=== PATIENT | female | born 1995 | race Caucasian/White ===

== ENCOUNTER 2022-02-07 16:31 | Outpatient (CLI) | payer OTHER, SELFPAY ==
[2022-02-07 18:15] LABS: HCG Quantitative* 393.84 mIU/mL
== END 2022-02-07 16:32 | disposition home or self-care (01) ==
PROVIDERS: Visit Provider Physician Assistant
DX: Z87.59 Personal history of other complications of pregnancy, childbirth and the puerperium (principal)
CPT/HCPCS: 84702

== ENCOUNTER 2022-02-09 08:05 | Outpatient (CLI) | payer OTHER, SELFPAY | END 2022-02-09 08:06 | disposition home or self-care (01) | PROVIDERS: Visit Provider Physician Assistant | DX: Z34.90 Encounter for supervision of normal pregnancy, unspecified, unspecified trimester (principal) | CPT/HCPCS: 84702 ==

== ENCOUNTER 2022-02-27 15:53 | Outpatient (CLI) | payer OTHER, SELFPAY ==
--- NOTE | 2022-02-27 16:00 | CRLHL7_ITS ---
For Patients: As a result of the Cures Act, medical imaging exams and procedure reports are released immediately into your electronic medical record. You may view this report before your referring provider. If you have questions, please contact your health care provider. INDICATION: First trimester scan, establish dates. COMPARISON: None. TECHNIQUE: Real-time [place]-scale imaging of the pelvis was performed. FINDINGS: Sonographic imaging demonstrates a single living intrauterine gestation. The embryo demonstrates a regular cardiac rate measuring 144 beats per minute. The embryo`s crown-rump length measurement of 1.0 cm corresponds to a gestational age of 7 weeks 1 day with a sonographic due date of 10/15/2022. There is a normal-appearing yolk sac. There are no gross abnormalities noted within the embryo at this early state of development. The gestational sac has a normal appearance. There is no evidence of a perigestational hemorrhage. The amount of fluid within the sac appears appropriate for gestational age. The cervix is closed. The myometrium appears normal. The ovaries are of normal size. Corpus luteal cyst left ovary. There are no suspicious fluid collections noted in the cul-de-sac. IMPRESSION: Normal first trimester OB ultrasound exam. Gestational age calculated at 7 weeks 1 day with a sonographic due date of 10/15/2022. Dictated by Nba Hsu MD @ 03/01/2022 11:32:29 AM (Electronically Signed)
== END 2022-02-27 15:54 | disposition home or self-care (01) ==
LOC: US 15:54
PROVIDERS: Visit Provider Physician Assistant
DX: Z34.91 Encounter for supervision of normal pregnancy, unspecified, first trimester (principal); Z3A.01 Less than 8 weeks gestation of pregnancy
CPT/HCPCS: 76817

== ENCOUNTER 2022-02-27 17:07 | Outpatient (CLI) | payer OTHER, SELFPAY ==
[2022-02-27 18:52] LABS: Hepatitis B Surface Antigen* Negative (Negative)
[2022-02-27 18:58] LABS: HIV 1/2/P24 Combo Screen* Negative (Negative)
[2022-02-27 19:09] LABS: Hepatitis C Virus Antibody* Negative (Negative)
[2022-02-27 19:35] LABS: Chlamydia DNA Amplified* NOT DETECTED (No Detected); GC DNA Amplified* NOT DETECTED (No Detected)
[2022-03-01 23:50] LABS: Varicella-Zoster Virus Ab, IgG 534.6 IV
[2022-03-02 01:54] LABS: Rapid Plasma Reagin (RPR) Non Reactive (Non Reactive)
== END 2022-02-27 17:08 | disposition home or self-care (01) ==
PROVIDERS: Visit Provider Physician Assistant
DX: Z34.91 Encounter for supervision of normal pregnancy, unspecified, first trimester (principal)
CPT/HCPCS: 86592; 86703; 86762; 86787; 86803; 86850; 86900; 86901; 87086; 87340; 87491; 87591

== ENCOUNTER 2022-05-23 12:52 | Outpatient (CLI) | payer OTHER, SELFPAY ==
--- NOTE | 2022-05-23 13:00 | CRLHL7_ITS ---
For Patients: As a result of the Century Cures Act, medical imaging exams and procedure reports are released immediately into your electronic medical record. You may view this report before your referring provider. If you have questions, please contact your health care provider. INDICATION: Evaluate anatomy. COMPARISON: February 27, 2022. TECHNIQUE: Real time [place] scale imaging of the fetus was performed. FINDINGS: Sonographic imaging demonstrates a single living intrauterine gestation. Fetus demonstrates a regular cardiac rate of 135 beats per minute. Fetus has a vertex orientation and longitudinal lie. The placenta lies anteriorly without evidence of placenta previa. Amniotic fluid volume appears normal. Single deepest vertical pocket: 4.1 cm. The cervix is closed and measures 3.3 cm in length. The composite ultrasound gestational age is calculated at 20 weeks 0 days with an estimated sonographic due date of October 10, 2022. The estimated weight is 339 grams which lies at the 74th percentile. The following biometric measurements were obtained: Biparietal diameter: 4.46 cm/19 weeks 3 days 41% Head circumference: 17.23 cm/19 weeks 6 days 46% Abdominal circumference: 15.2 cm/20 weeks 3 days 67% Femur length: 3.3 cm/20 weeks 1 day 60% The HC/AC ratio measures: 1.14 range (1.08-1.25) The FL/AC ratio measures 21.51. On anatomic survey, there is a normal appearance of the cerebral ventricles, cisterna magna and cerebellum. The nose, lips, and facial profile appear normal. The cervical, thoracic and lumbar spine are well visualized and appear normal. There is a normal four-chamber heart view and the left and right ventricular outflow tracts appear normal. diaphragm, stomach, kidneys and bladder appear normal. There is a normal three-vessel cord. The cord insertion site is eccentric. The four extremities appear normal. Appropriate growth and maturation when compared with February 27, 2022. IMPRESSION: Normal OB ultrasound exam with concordance of clinical and sonographic dating. No intrinsic abnormalities noted on anatomic survey. There is however an eccentric cord insertion site. Dictated by Davion Acuña MD @ 05/24/2022 8:32:01 AM (Electronically Signed)
== END 2022-05-23 12:53 | disposition home or self-care (01) ==
LOC: US 12:53
PROVIDERS: Visit Provider Advanced Practice Midwife
DX: Z34.92 Encounter for supervision of normal pregnancy, unspecified, second trimester (principal); Z3A.19 19 weeks gestation of pregnancy
CPT/HCPCS: 76805

== ENCOUNTER 2022-07-20 13:34 | Outpatient (CLI) | payer OTHER, SELFPAY | END 2022-07-20 13:35 | disposition home or self-care (01) | LOC: NFLDREF 07-24 08:36 | PROVIDERS: Visit Provider Advanced Practice Midwife | DX: Z34.82 Encounter for supervision of other normal pregnancy, second trimester (principal) | CPT/HCPCS: 86592 ==

== ENCOUNTER 2022-07-23 07:53 | Outpatient (CLI) | payer OTHER, SELFPAY | END 2022-07-23 07:54 | disposition home or self-care (01) | LOC: NFLDREF 07-24 11:28 | PROVIDERS: Visit Provider Advanced Practice Midwife | DX: Z34.93 Encounter for supervision of normal pregnancy, unspecified, third trimester (principal); Z3A.28 28 weeks gestation of pregnancy | CPT/HCPCS: 82951; 82952 ==

== ENCOUNTER 2022-08-10 10:49 | Outpatient (CLI) | payer OTHER, SELFPAY | END 2022-08-10 10:50 | disposition home or self-care (01) | LOC: AMB 08-23 13:38 | PROVIDERS: Visit Provider Family Medicine | DX: K81.0 Acute cholecystitis (principal); R09.02 Hypoxemia; R10.9 Unspecified abdominal pain | CPT/HCPCS: A0425; A0426; A0428 ==

== ENCOUNTER 2022-09-13 10:47 | Outpatient (CLI) | payer OTHER, SELFPAY ==
[2022-09-14 15:41] LABS: Strep B DNA Probe NEGATIVE (Negative)
[2022-09-14 15:43] LABS: Strep B Pen/Amox Allergy No
== END 2022-09-13 10:48 | disposition home or self-care (01) ==
PROVIDERS: Visit Provider Physician Assistant
DX: Z34.93 Encounter for supervision of normal pregnancy, unspecified, third trimester (principal); Z3A.35 35 weeks gestation of pregnancy
CPT/HCPCS: 87081; 87653

== ENCOUNTER 2022-09-28 07:10 | Outpatient (CLI) | payer OTHER, SELFPAY ==
--- NOTE | 2022-09-28 07:15 | CRLHL7_ITS ---
For Patients: As a result of the Cures Act, medical imaging exams and procedure reports are released immediately into your electronic medical record. You may view this report before your referring provider. If you have questions, please contact your health care provider. INDICATION: measuring large for dates COMPARISON: 05/23/2022 TECHNIQUE: Real time [place] scale imaging of the fetus was performed. FINDINGS: Sonographic imaging demonstrates a single living intrauterine gestation. Fetus demonstrates a regular cardiac rate of 141 beats per minute. Fetus has a vertex position. The placenta lies anteriorly. Amniotic fluid volume appears increased and there is a single deepest vertical pocket: 10.2 cm. ILAN 29.1 cm. The estimated weight is 3717gm which lies at the 88th %. On the prior OB ultrasound exam dated 05/23/2022 the estimated weight was at the 74th%. BPD 36th percentile. HC 59th percentile. AC greater than 97th percentile. FL 37th percentile. The HC/AC ratio measures 0.93 range (0.88-1.06). IMPRESSION: Sonographic gestational age 38 weeks 3 days and sonographic due date 10/09/2022. Good correlation with dates. Estimated weight 88th percentile. Abdominal circumference greater than 97th percentile. Polyhydramnios. ILAN 29.1 cm. Dictated by Nba Hsu MD @ 09/28/2022 8:26:54 AM (Electronically Signed)
== END 2022-09-28 07:11 | disposition home or self-care (01) ==
LOC: US 07:11
PROVIDERS: Visit Provider Advanced Practice Midwife
DX: O40.3XX0 Polyhydramnios, third trimester, not applicable or unspecified (principal)
CPT/HCPCS: 76816

== ENCOUNTER 2022-10-02 15:55 | Outpatient (CLI) | payer OTHER, SELFPAY ==
--- NOTE | 2022-10-02 14:00 | CRLHL7_ITS ---
For Patients: As a result of the Century Cures Act, medical imaging exams and procedure reports are released immediately into your electronic medical record. You may view this report before your referring provider. If you have questions, please contact your health care provider. INDICATION: Polyhydramnios, third trimester COMPARISON: 09/28/2022 TECHNIQUE: Real time [place] scale imaging of the fetus was performed. Without non-stress testing. FINDINGS: Sonographic imaging demonstrates a single living intrauterine gestation. Fetus demonstrates a regular cardiac rate of 146 beats per minute. Fetus has a vertex position. The amniotic fluid volume appears increased and there is a single deepest pocket measurement of 10.2 cm. ILAN 28.9 cm. The fetus was active and demonstrated normal breathing movements. There was normal flexion and extension of the trunk and extremities. IMPRESSION: Normal biophysical profile score of 8 out of 8. Polyhydramnios. Dictated by Nba Hsu MD @ 10/03/2022 8:42:38 AM (Electronically Signed)
== END 2022-10-02 15:56 | disposition home or self-care (01) ==
LOC: US 15:56
PROVIDERS: Visit Provider Advanced Practice Midwife
DX: O40.3XX0 Polyhydramnios, third trimester, not applicable or unspecified (principal); Z3A.31 31 weeks gestation of pregnancy
CPT/HCPCS: 76819

== ENCOUNTER 2022-10-08 09:28 | Outpatient (CLI) | payer OTHER, SELFPAY ==
--- NOTE | 2022-10-08 09:45 | CRLHL7_ITS ---
For Patients: As a result of the Cures Act, medical imaging exams and procedure reports are released immediately into your electronic medical record. You may view this report before your referring provider. If you have questions, please contact your health care provider. INDICATION: Polyhydramnios. Third trimester. TECHNIQUE: Real-time [place] scale imaging of the fetus was performed. Without non stress testing. Comparison October 02, 2022. FINDINGS: Single living intrauterine in vertex presentation. Anterior placenta. heart rate 136 beats per minute. Biophysical profile score 8/8 with 2 points given each for breathing, movement, tone, and amniotic fluid. Single deepest pocket measurement 8 cm, previously 10.2 cm. Amniotic fluid volume index 22.7 cm, previously 28.9 cm. IMPRESSION: Single living intrauterine in vertex presentation. Amniotic fluid volume index and single deepest pocket measurements are at the upper limit of normal, improved compared to the prior study. Dictated by Davion Acuña MD @ 10/08/2022 10:31:34 AM (Electronically Signed)
== END 2022-10-08 09:29 | disposition home or self-care (01) ==
LOC: US 09:29
PROVIDERS: Visit Provider Advanced Practice Midwife
DX: O40.3XX0 Polyhydramnios, third trimester, not applicable or unspecified (principal); Z3A.31 31 weeks gestation of pregnancy
CPT/HCPCS: 76819

== ENCOUNTER 2022-10-10 07:09 | Inpatient (IN) | payer OTHER, SELFPAY ==
[2022-10-10] VITALS (32 sets, daily range): BP systolic 92–121; BP diastolic 52–83; PULSE 58–105; RESP 16–18; TEMP 36.5–37; O2SAT 94–100; BMI 36.9
--- NOTE | 2022-10-10 08:29 | W.PM.LDBA ---
Subjective History of Present Illness Narrative: Patient is being admitted to Labor and Delivery for IOL for polyhydramnios. Her ILAN was 29.1 and 28.9 on two occasions but was down to 22.7 on last check. Her IOL was already scheduled at that time so she was given the option for continuing with the plan for an IOL or waiting for spontaneous labor with follow up BPPs. She choose to continue with the plan for an IOL. She is a 26 year old at weeks gestation. Her full history and physical was dictated by Amanda Purvis CNM on 09/21/22. Please see this for details. 1. Obesity, BMI 35.8 Hemoglobin A1c: 5.3 Aspirin 81 mg weeks 12 through 36 Early GTT @ 20w: 128 2. History of recurrent loss Blighted ovum 03/14, ectopic August 2021, treated with methotrexate 3. Failed 1hr GTT. 3hr GTT vs. 1-2 wks of testing-unsure, depends on if she can get time off work. Passed 3 hour (03/28 numbers abnormal) 4. Gallstones 08/06 Consult to general surgery placed Reviewed plan of care with Dr. Babb 08/06 5. Measuring large for dates 09/27, EFW 88%, AC >97% 6. Polyhydramnios, ILAN 29.1, SDP 10.2 BPP weekly until delivery. Ordered Delivery at 39-40 weeks 39.3wks ILAN 22.7, SDP 8cm. Choose to continue with IOL on 10/10/22. OB - Problem Based A/P Additional Plan (1) Polyhydramnios affecting in third trimester: Status: Acute (2) Obesity with body mass index (BMI) of 35.0 to 39.9 without comorbidity: Status: Chronic (3) Encounter for induction of labor: Status: Acute Plan ASSESSMENT:? at 39.5 weeks gestation? GBS negative? ?complicaed by polyhydramnios that was found to be then resolved. IOL? ?? PLAN:? 1. Reviewed risks and benefits of IOL with Pitocin vs Cytotec. Pt prefers Cytotec. Pitocin to follow if needed.? 2. Candidate for analgesia of choice. Planning epidural.? 3. Anticipate VD? 4. IV placement for anticipated epidural. She desires placement. 5. Continuous monitoring per Cytotec policy. Delivery/Labor/Induction Plan Plan: induction Induction method: per misoprostol protocol OB Result Labs Blood Type: A (+) positive GBS Status: negative OB Exam Physical Exam Vital signs: Pulse BP Pulse Ox 103 H 112/68 96 10/10/22 07:24 10/10/22 07:24 10/10/22 07:25 Narrative: Psychiatric:? Alert and oriented x3? HEENT:? Normocephalic, atraumatic? Neck:? Supple without adenopathy or thyromegaly? Lungs:? Clear to auscultation bilaterally? Heart:? Regular rate and rhythm, no murmur, rub or gallop? Abdomen:? Soft, nontender, and gravid? Extremities:? No edema or erythema? Detailed Labor and Delivery Exam Patient Gravid: Yes Dilation (cm): 1 (1.5) Effacement (%): 80 Cervix position: posterior Consistency: medium Contraction Frequency: 3-4 Contraction intensity: Mild Fetus (Single) Station: -2 (ballotable ) Amniotic Membrane Status: intact Heart Rate Baseline: 135 Monitor Accelerations: Present Monitor Decelerations: None Conveyor Tender Variability: Moderate (6-25)
[2022-10-10] MEDS: miSOPROStoL 25 MCG/0.25 TABLET VAGINAL ×4 (08:42→17:44)
[2022-10-10] MEDS: LACTATED RINGERS 1000 ML 1,000 ML 125 ML IV ×3 (14:39→23:08)
[2022-10-10] MEDS: ROPIVACAINE 0.2% 100 ml 100 ML 12 MG EPIDURAL (21:08)
--- NOTE | 2022-10-10 21:18 | P.ANBPRC_ITS ---
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 What is your current living situation?: I presently have a place to live Problems where you live: no known problems In the past 12 months, utilities in danger of being shut off: no In the past 12 mos, have been you worried that your food would run out before you had money to buy more?: never true In the past 12 mos, the food you bought just didn't last and you didn't have money to buy more?: never true Highest level of school completed/degree received: Bachelor's degree Smoking Status: Never smoker Do you use any of these nicotine containing products: None Second hand tobacco smoke exposure: No How often do you have a drink containing alcohol: never AUDIT-C Alcohol total score: 0 Non-prescribed substance use: denies use Caffeine: No How often does anyone, including family, friends and others, physically hurt you : never How often does anyone, including family, friends and others, insult or talk down to you: never How often does anyone, including family, friends and others, threaten you with harm: never How often does anyone, including family, friends and others, scream or curse at you: never Little interest or pleasure in doing things: not at all Feeling down, depressed, or hopeless: not at all service: No Meds Home Medications and Allergies Home Medications Medication Instructions Recorded Confirmed Type docosahexaenoic acid 200 mg 1 mg PO DAILY 02/27/22 10/10/22 History capsule ( DHA) aspirin 81 mg capsule 81 mg PO DAILY 08/09/22 10/10/22 History Allergies Allergy/AdvReac Type Severity Reaction Status Date / Time No Known Drug Allergies Allergy Verified 10/10/22 07:56 Results Vital Signs Vital Signs: Last Vital Signs Temp 98.4 F 10/10/22 20:42 Pulse 88 10/10/22 21:15 Resp 16 10/10/22 20:42 BP 110/71 10/10/22 21:15 Pulse Ox 100 10/10/22 21:08 Weight: 91.626 kg Height: 157.48 cm Anesthesia Procedures Epidural Insertion Patient Location: OB Start Time: : Stop Time: : Start Date: 10/10/22 Stop Date: 10/10/22 Reason for Block: procedure for pain Patient Position: sitting Performed By: Joseph Monahan Preanesthetic Checklist: IV checked, risks and benefits discussed, surgical consent, monitors and equipment checked, pre-op evaluation, timeout performed and anesthesia consent Prep: chlorhexidine gluconate Monitoring: blood pressure monitoring, continuous pulse oximetry and heart rate Approach: midline Vertebral Space: lumbar (1-5) Epidural Technique: JOSE ALFREDO saline Needle Type: Tuohy needle Injection Technique: continuous catheter Needle gauge: 17 Needle Length (cm): 10 cm Needle Insertion Depth (cm): 7 Catheter Gauge: 19 Catheter Type: multi-orifice Catheter at skin depth (cm): 12 Test Dose Result: negative and lidocaine 1.5% with epinephrine 1 to 200,000
--- NOTE | 2022-10-10 22:12 | PM.OBPNL ---
Subjective Date Seen: 10/10/22 Narrative: Silvia has received multiple doses of Cytotec and is murphy frequently. She was able to feel these contractions but they felt mild and some were uncomfortable and some only felt as tightening. She changed position frequently and did the labor warm up. She felt a gush of fluid at 2014 and proceeded to leak copious amounts of clear fluid. Soon after she started feeling significantly more uncomfortable with contractions and requested an epidural. She is now comfortable with her epidural. Encouraged her to rest if able. Objective Vital Signs: Last Vital Signs Temp 98.6 F 10/10/22 21:56 Pulse 67 10/10/22 22:07 Resp 18 10/10/22 21:56 BP 101/57 L 10/10/22 22:07 Pulse Ox 100 10/10/22 21:08 Pelvic Exam Dilation (cm): 4-5 Effacement (%): 80 Station: -2 Contractions Monitor mode: External Contraction intensity: Mild Assessment Station: -2 (ballotable ) Heart Rate Baseline: 135 Monitor Accelerations: Present Monitor Decelerations: None Plan Plan: Hold Cytotec at this time. Can reevaluate as patient condition changes. Epidural in place. Expectant management at this time. Anticipate .
[2022-10-10] MEDS: PHENYLEPHRINE 100 MCG/ML SYRINGE IVP ×3 (22:19→23:08)
[2022-10-10 23:43] LABS: Basophils Percent Auto 0.1 % (0.0-3.0); Eosinophils Percent Auto 0.4 % (0.0-7.0); Hematocrit 37.9 % (33.0-51.0); Hemoglobin* 13.3 gm/dL (12.0-16.0); Immature Granulocytes Pct Auto 0.4 %; Lymphocytes Percent Auto 13.1 % (20-44); Mean Corpuscular HGB Conc 35 gm/dL (32-36); Mean Corpuscular Hemoglobin 32 pg (26-34); Mean Corpuscular Volume 90 fL (80-100); Monocytes Percent Auto 5.4 % (0.0-11.0); Neutrophils Percent Auto 80.6 % (42.0-72.0); Platelet Count* 257 K/uL (140-440); Red Blood Count 4.22 m/uL (4.00-5.20); White Blood Count* 13.92 K/uL (4.50-11.00)
[2022-10-10 23:48] LABS: Slide Review Reflex No
[2022-10-11] VITALS (34 sets, daily range): BP systolic 92–141; BP diastolic 52–75; PULSE 54–126; RESP 16–18; TEMP 36.6–37.3; O2SAT 96–100
[2022-10-11] MEDS: PHENYLEPHRINE 100 MCG/ML SYRINGE IVP (00:22)
[2022-10-11] MEDS: ONDANSETRON 2 MG/ML inj 4 MG IV (03:58)
[2022-10-11] MEDS: OXYTOCIN 30 unit/500 ML in NS 30 UNIT/500 ML BAG 325 UNIT IVPB (05:00)
--- NOTE | 2022-10-11 05:43 | W.PM.OBVAGDE ---
OB Procedure Vag Delivery Mother Details Mother Details: The patient is a 26 year-old, 3, Para 0, admitted on 10/10/22 at Days gestation for IOL for polyhydraminious.? Cervical exam on admission was 1.5 cm/60 % effaced/-3 station with membranes intact in vertex presentation.? Contractions were every 2-4 min but she was not feeling them.? heart rate demonstrated baseline 135 bpm with moderate variability, + accelerations, - decelerations; a category 1 tracing.? SROM occurred at 2014 with clear fluid.? : 1 Para: 1 Weeks Gestation: 39.6 Admission Date: 10/10/22 Additional Details Amniotic Membrane Status: SROM Amniotic Membrane Rupture Date: 10/10/22 Amniotic Membrane Rupture Time: 20:15 Amniotic Membrane Fluid Description: Clear Analgesia/Anesthesia Type: Epidural Waterbirth: No Pitcoin: Yes ( only) Intrapartal Events: Labor Induction Induction Method: per misoprostol protocol Labor Onset: 20:45 Complete: 02:30 Pushin:40 Heart: heart tones during second stage were category 2. Baseline 145, + accels, variable decels, moderate variability. Delivery Details Delivery Date: 10/11/22 Delivery Time: 04:59 Route of delivery: Infant Gender: Female Viability: Alive; Heart Rate Present Position at Delivery: OA Delivery Details: At 0459 a viable female delivered in vertex OA presentation over intact perineum via spontaneous vaginal delivery.? was placed on maternal abdomen.? Cord was clamped and cut after a >5 minute delay.? Nose and mouth were bulb suctioned.? weight pending.? 7 at 1 minute and 9 at 5 minutes.? Shoulder dystocia: no.? Nuchal cord: x1, summersaulted at the perineum.? 1 Minute Interval Total Score: 7 5 Minute Interval Total Score: 9 Additional Details Shoulder Dystocia: No Placenta Delivery Time: 05:08 Placental Delivery Description: Spontaneous Delivery repair: Vicryl Procedure Done: Global Blood Loss: 950 (likely a significant amount of amniotic fluid in the drape with delivery but unable to distinguish from blood.) Laceration: Perineal - 2nd Degree Episiotomy Description: None Blood Loss Measurement Type: QBL Sponge/Need Count Correct: Yes Cord Vessel Description: 3 Vessels and Nuchal Cord Event Summary Status: Mother and infant were stable after delivery. Disposition: floor
[2022-10-11] MEDS: ACETAMINOPHEN 500 MG TABLET 1000 MG PO ×2 (10:04→15:33)
[2022-10-11] MEDS: DOCUSATE SODIUM 100 MG CAPSULE PO (11:12)
[2022-10-11] MEDS: IBUPROFEN 600 MG TABLET PO ×2 (12:46→20:16)
[2022-10-12] VITALS: BP 101/74; PULSE 63; RESP 18; TEMP 36.7; O2SAT 98
[2022-10-12 06:59] LABS: Hemoglobin* 11.8 gm/dL (12.0-16.0)
[2022-10-12 07:32] VITALS: BP 117/77; PULSE 90; RESP 18; TEMP 36.8; O2SAT 97
[2022-10-12] MEDS: IBUPROFEN 600 MG TABLET PO (07:40)
[2022-10-12] MEDS: DOCUSATE SODIUM 100 MG CAPSULE PO (07:40)
--- NOTE | 2022-10-12 07:52 | P.DS_ITS ---
DS: Providers Provider Date Seen: 10/12/22 Date of admission: 10/10/22 07:09 Primary care physician: Not a Local Provider Admitting Clinician: Aminata Purvis CNM Attending Physician on discharge: Annemarie Chavez CNM DS: Diagnosis Discharge Diagnosis (1) care and examination immediately after delivery: Status: Acute (2) Lactating mother: Status: Acute (3) Normal vaginal delivery: Status: Acute Exam Narrative: Exam Narrative: GENERAL APPEARANCE:? normal affect, alert, no distress MOOD:? appropriate CHEST:? clear to auscultation HEART:? regular rate and rhythm ABDOMEN:? soft, non-tender the uterine fundus is at Umbilicus, Midline and is appropriate for the stage of recovery. PERINEUM:? mild edema of the perineum, there is a Perineal Laceration,?2nd degree, that is healing well. EXTREMITIES:? normal and no edema Const: Vital Signs, click to edit/add: Vital Signs - 24 hr 10/11/22 08:39 10/11/22 09:12 10/11/22 11:39 Temperature 98.2 F 97.9 F Pulse Rate 78 Pulse Rate [Blood Pressure Cuff] 78 70 Respiratory Rate 17 17 Blood Pressure 112/61 Blood Pressure [Le ft Arm] 112/61 115/72 Pulse Oximetry 96 Oxygen Delivery Me thod Room Air Room Air 10/11/22 15:58 10/11/22 20:20 10/12/22 00:00 Temperature 98.2 F 97.8 F 98.1 F Pulse Rate Pulse Rate [Blood Pressure Cuff] 75 65 63 Respiratory Rate 16 18 18 Blood Pressure Blood Pressure [Le ft Arm] 107/63 99/67 101/74 Pulse Oximetry 97 97 98 Oxygen Delivery Me thod Room Air Room Air Room Air 10/12/22 07:32 Temperature 98.3 F Pulse Rate Pulse Rate [Blood Pressure Cuff] 90 Respiratory Rate 18 Blood Pressure Blood Pressure [Le ft Arm] 117/77 Pulse Oximetry 97 Oxygen Delivery Me thod Room Air Documenting provider has reviewed patient's vital signs: yes OB - DS: Summary Hospital Course Hospital Course: January Vega is a 26 y.o. G 3 P 1021 who was admitted to [facility] for induction of labor for polyhydramnios. ?She had an uncomplicated NVD. The patient feels well. ?The pain is well controlled with current medications. ?She has no new complaints. ?She is breast feeding and reports things are going ok. Her milk has not come in so they have supplemented with donor breast milk. She is planning to see today. She does attempt to bring baby to breast but doesn't want to make things more stressful if it doesn't work. the patient has done well.? Vitals have been stable.? She has remained afebrile.? Has a good appetite, is tolerating a general diet. ?She is voiding without difficulty.? She is passing gas and has not had a bowel movement.? She is ambulating and denies any dizziness.? Has Small amount of rubra lochia. She is planning oral progesterone only pills for control. Problems: None plan: Discharge home with baby. Follow up in 2 weeks and 6 weeks. , may see if needed Hgb 11.8 Peripartum Data Infant delivery method: Vaginal Laceration description: Perineal - 2nd Degree complications: none [place] Gender: Female Discharge Plan: Home Status at Discharge Functional status at discharge: independent ambulation Overall status at discharge: patient is progressing back to baseline Time Spent with Patient Time attestation: Total time spent providing and/or coordinating discharge services: Discharge Plan Discharge Disposition: Home, Self-Care Date of Admission: 10/10/22 07:09 Primary Care Provider: Provider,Not a Local Condition: Stable Anticipated Discharge Date/Time: 10/12/22 12:00 Discharge Medications: New docusate sodium 100 mg Capsule 100 mg PO DAILY Qty: 90 0RF ibuprofen 600 mg Tablet 600 mg PO Q6H PRNQty: 60 0RF acetaminophen 500 mg Tablet 1,000 mg PO Q6H PRNQty: 0 0RF Continued DHA 200 mg capsule 1 mg PO DAILY Discontinued aspirin 81 mg capsule 81 mg PO DAILY Discharge Orders: Discharge Order (Routine); Ordered 10/12/22 Ordered By: Annemarie Chavez Patient Education: OB Over the Counter Medication Information, OB Vaginal/Breast Feeding Additional Instructions: Discharge instructions were reviewed with the patient including signs and symptoms of infection and home going medications Nothing vaginally for 6 weeks: no tampons or intercourse Off Work or School for 6 weeks 2-week visit: discuss infant feeding concerns, review control options and screen for anxiety/depression. 6-week visit for an annual exam. consultation services are available to all mothers and babies for the first year after delivery.? To make an appointment, please call [phone]. Activity Level: Activity as Tolerated Discharge Diet: Regular Follow Up Appointments: [facility] [Provider Group] Forms: [employer]. Info Instructions
== END 2022-10-12 11:05 | disposition home or self-care (01) | DRG 807 ==
PROVIDERS: Admitting Provider Advanced Practice Midwife; Visit Provider Advanced Practice Midwife
DX: O40.3XX0 Polyhydramnios, third trimester, not applicable or unspecified (principal); Z37.0 Single live birth; O99.214 Obesity complicating childbirth; O70.1 Second degree perineal laceration during delivery; Z3A.39 39 weeks gestation of pregnancy
CPT/HCPCS: 1967; 36415; 59200; 85018; 85025; 86850; 86900; 86901; A9270; J2371; J2405; J2795; J7120; S0020

== ENCOUNTER 2023-07-08 18:28 | Outpatient (CLI) | payer OTHER, SELFPAY ==
--- OUTSIDE RECORDS SUMMARY | 2023-07-08 18:31 | XMS_ITS | Clinical Summary ---
Author Name Unknown Organization [facility] Address [place], [place] [address] Care Team Providers Care Print Cutter Name Role Phone Unavailable Primary Care Provider Unavailabl e Allergies No known active allergies Medications Medication Sig Dispensed Refills Start Date End Date Status PNV #[id number] acid-dha 35 mg iron-5 mg iron-1 mg cap Take 1 Capsule by mouth once daily. Active aspirin (ECOTRIN) 81 mg enteric coated tablet Take 81 mg by mouth once daily. Active pyridoxine, vitamin B6, (Vitamin B-6) 25 mg tabletIndications:exce ssive vomiting in ,nausea gravidarum Take 25 mg by mouth at bedtime if needed. Active doxylamine (UNISOM) 25 mg tabletIndications:naus ea gravidarum Take 25 mg by mouth at bedtime if needed for Sleep. Active Active Problems Problem Noted Date Diagnosed Date Hypoxia 08/12/2022 Cholelithiasis 08/12/2022 Shortness of breath 08/12/2022 31 weeks gestation of 08/12/2022 Acute pulmonary edema 08/12/2022 Choledocholithiasis Resolved Problems Problem Noted Date Diagnosed Date Resolved Date Acute pulmonary edema 08/12/20222022 Social History Tobacco Use Types Packs/Day Years Used Date Smoking Tobacco: Never Smokeless Tobacco: Never Tobacco Cessation:Counseling Given: No Alcohol Use Standard Drinks/Week Comments Not Currently 0 (1 standard drink = 0.6 oz pure alcohol) prior to 1 drink a week tops Social Connections Answer Date Recorded Frequency of Communication with Friends and Fami ly Not on file 08/10/2022 Sex and Gender Information Value Date Recorded Sex Assigned at Not on file Gender Identity Not on file Sexual Orientation Not on file Obstetrics History Para Term AB IAB SAB Ectopic Multiple Livin g Live Births 3 2 Date Outcome GA Total Labor Labor/2nd/3rd Weight Sex Delivery Anes PTL Verenice A1 A5 Name Cl in 03/13 21 AB 09/11 22 AB ECTOPIC Last Filed Vital Signs Vital Sign Reading Time Taken Comments Blood Pressure 95/53 08/14/2022 8:00 AM CDT Pulse 94 08/14/2022 8:00 AM CDT Temperature 36.9 ??C (98.5 ??F) 08/14/2022 8:00 AM CD T Respiratory Rate 18 08/14/2022 8:00 AM CDT Oxygen Saturation 96% 08/14/2022 8:00 AM CDT Inhaled Oxygen Concentration - - Weight 87.2 kg (192 lb 3.9 oz) 08/11/2022 10:00 PM CDT Height 157 cm (5' 1.81) 08/10/2022 12:00 PM CDT Body Mass Index 35.38 08/10/2022 12:00 PM CDT Plan of Treatment Not on file Advance Directives * Full Code (Latest Code Status on File) Date Activated Date Inactivated Comments 08/10/2022 12:38 PM 08/14/2022 2:18 PM Question Answer Comments Code Status Discussion: Reviewed Preferences * Full Code Date Activated Date Inactivated Comments 08/10/2022 12:04 PM 08/10/2022 12:38 PM Question Answer Comments Code Status Discussion: Unable to Assess Preferences, Provider to review later
== END 2023-07-08 18:29 | disposition home or self-care (01) ==
PROVIDERS: Visit Provider Nurse Practitioner Family
DX: R10.11 Right upper quadrant pain (principal)
CPT/HCPCS: 80053; 82150; 83690

== ENCOUNTER 2023-08-01 15:51 | Outpatient (CLI) | payer OTHER, SELFPAY ==
--- OUTSIDE RECORDS SUMMARY | 2023-08-01 16:10 | XMS_ITS | Clinical Summary ---
Author Name Unknown Organization [facility] Address [place], [place] [address] Care Team Providers Care Chain Saw Operator Name Role Phone Unavailable Primary Care Provider Unavailabl e Allergies No known active allergies Medications Medication Sig Dispensed Refills Start Date End Date Status PNV #[id number] acid-dha 35 mg iron-5 mg iron-1 mg [...]
== END 2023-08-01 15:52 | disposition home or self-care (01) ==
PROVIDERS: PCP Nurse Practitioner Family; Visit Provider Nurse Practitioner Family
DX: R10.11 Right upper quadrant pain (principal)
CPT/HCPCS: 80053; 82150; 83690; 85025

== ENCOUNTER 2023-09-05 06:46 | Day surgery (SDC) | payer OTHER, SELFPAY ==
[2023-09-05] VITALS (11 sets, daily range): BP systolic 98–120; BP diastolic 59–79; PULSE 64–95; RESP 14–16; TEMP 36.1–36.5; O2SAT 96–100; BMI 33.3
--- OUTSIDE RECORDS SUMMARY | 2023-09-05 06:48 | XMS_ITS | Clinical Summary ---
Author Organization [facility] Address [place], [place] [address] Care Team Providers Care Cooler Tender Name Role Phone Unavailable Primary Care Provider Unavailabl e Allergies No known active allergies Medications Medication Sig Dispensed Refills Start Date End Date Status PNV #27-pzlm-heach acid-dha 35 mg iron-5 mg iron-1 mg [...] Outcome GA Total Labor Labor/2nd/3rd Weight Sex Type Anes PTL Verenice A1 A5 Name Clin 1 AB 2 AB ECTOPIC Last Filed Vital Signs Vital [...]
[2023-09-05 07:18] LABS: Ur HCG Qualitative* Negative (Negative)
[2023-09-05] MEDS: SODIUM CHLORIDE 0.9 % (FLUSH) 10 ML SYRINGE IVF (07:30)
[2023-09-05] MEDS: LACTATED RINGERS 1000 ML 1,000 ML 100 ML IV ×2 (07:35→09:55)
--- NOTE | 2023-09-05 08:01 | W.PM.H&PU ---
History & Physical Update History & Physical Update H&P Reviewed and patient assessed: No changes noted H&P Updates: pre-op labs reviewed which were normal.
--- NOTE | 2023-09-05 08:04 | PM.GSPRC ---
Operative Note Date of procedure: 09/05/23 Pre-op diagnosis: 1. Biliary colic 2. History of choledocholithiasis during status post ERCP Post-op diagnosis: 1. Chronic cholecystitis 2. History of choledocholithiasis during status post ERCP Type of Procedure: The patient is a 27-year-old female who, approximately 1 year ago, presented to the emergency department with right upper quadrant pain during her 31st week of . Workup revealed cholecystitis. She was admitted to the hospital on IV antibiotics and antiemetics. She was found to have a bilirubin increased to 3.7. She was transferred to an outside hospital for an ERCP. She was found to have a large amount of stones and sludge in the lower 3rd of her bile duct. After her ERCP she had no further issues and did not follow up for cholecystectomy. She went on to deliver her baby without incident and had no further episodes until the last couple of months. She had a few episodes of upper abdominal pain with nausea and vomiting. She has been eating a low diet since which has helped control her symptoms. She then presented to clinic to discuss cholecystectomy. After discussion, I did recommend cholecystectomy given her symptoms, history of choledocholithiasis and desire to have further pregnancies in the near future. She agreed to proceed. Procedure Description: After discussing the risks and benefits of the procedure, the patient signed informed consent.? The operative site was marked and the patient was brought to the operating room and placed on the operating table in supine position.? Care was taken to pad the patient's pressure points.?? The patient was then intubated by anesthesia.?? The operative site was then prepped and draped in the usual sterile fashion.? A time-out was then performed. Entrance to the abdomen was attempted via a 5 mm Visiport in the left upper quadrant. The layers the abdomen were visualized as it passed through, however when insufflation was applied, the port was not in the abdominal cavity. Visiport technique was attempted again, however again it appeared as though the port was in the preperitoneal space though a fair amount of fatty tissue was visualized here. Because of this I elected to enter the abdomen with a Kaye technique. An incision was made below the umbilicus. Dissection was taken down to the fascia using cautery. The fascia was grasped between 2 Kiana clamps. This was then incised. The peritoneum was entered. The abdomen was then insufflated. As suspected, the left upper quadrant port had not gone all the way through the abdominal wall. This was then placed under direct vision. The patient was then placed in reverse Trendelenburg with the right-side up. 5 mm working ports were then placed along the right costal margin, under direct vision. The gallbladder initially was not visible under the liver, but once the liver was lifted gently, the gallbladder was noted. It was contracted. There were omental adhesions noted. The gallbladder was grasped and lifted cephad. The fundus of the gallbladder was firm and contained a large stone. This portion of the gallbladder was bulbous, however then it appeared to taper more gradually down towards a dilated cystic duct. I began my dissection just under the bulbous portion of the gallbladder. I was able to incise the serosa of the gallbladder and then, using a combination of hook cautery, blunt dissection and the suction middle school guidance counselor, I was able to dissect completely behind the gallbladder on the cystic plate. I took this dissection down towards what appeared to be the cystic duct. I had at this point dissected the majority of the gallbladder of the cystic plate except for a small area at the fundus. I then began dissecting out what appeared to be cystic artery sitting on top of a dilated cystic duct. The adhesions here were dense, however I was able to carefully dissect out the cystic duct which actually was much smaller than it initially appeared once the adhesions were dissected free. I was also able to dissect the cystic artery. There was a branch diving posteriorly into the liver. I kept my dissection distal to this, dissecting it where it clearly enter the gallbladder and did not have any other branches toward the liver. Once this was done 2 clips were placed on the artery proximally and 1 clip distally. Similarly 1 clip was placed on the cystic duct proximally and 2 clips distally. Both structures were divided. The gallbladder was then completely removed from the liver. This was removed from the abdomen using an Endo-Catch bag. The wound bed was examined. A few small stones had spilled out of the gallbladder during the procedure. However these were removed at the time. Irrigation was used in the right upper quadrant to ensure that any spilled bile or gallstones were removed. Hemostasis appeared excellent. Ports were then removed and the abdomen was desufflated. The umbilical port site fascia was closed with 0 Vicryl suture. Local anesthetic was injected around the port sites. The skin was closed with absorbable subcuticular suture. Sterile dressings were applied. Instrument sponge and needle counts were correct at the end of the case. The patient was then woken and transferred to the PACU in stable condition. ? The patient tolerated the procedure well. Findings: Contracted gallbladder with gallstones, indicating chronic cholecystitis. Anesthesia: GETA Surgeon: Dione Winslow MD Estimated blood loss (mL): 5 Specimen: Gallbladder Condition: stable Disposition: PACU
[2023-09-05] MEDS: CEFAZOLIN 2 GM INJ IVP (08:21)
[2023-09-05] MEDS: BUPIVACAINE 0.25% 30 ML INJECTION (08:28)
--- NOTE | 2023-09-05 09:51 | W.ANESCHARGE ---
Anesthesia Charges Start Date/Time Anesthesia Start Date: 09/05/23 Anesthesia Start Time: 07:59 Stop Date/Time Anesthesia Stop Date: 09/05/23 Anesthesia Stop Time: 10:16
--- NOTE | 2023-09-05 10:24 | W.ANESCHARGE ---
Anesthesia Charges Start Date/Time Anesthesia Start Date: 09/05/23 Anesthesia Start Time: 07:59 Stop Date/Time Anesthesia Stop Date: 09/05/23 Anesthesia Stop Time: 10:16
--- NOTE | 2023-09-05 10:37 | SUR.PHASEI ---
Patient restless on entry to Phase I. Patient rolling in bed. steri strips at 3 incision sites no longer present. Charge Nurse Dian notified. Mable LEON in room to reapply steri strips at all incision sites. Patient tolerated well.
== END 2023-09-05 11:55 | disposition home or self-care (01) ==
LOC: OR 06:46
PROVIDERS: Anesthesiology; PCP Nurse Practitioner Family; Visit Provider Surgery
PROC: 0FT44ZZ Resection of Gallbladder, Percutaneous Endoscopic Approach (ICD-10-PCS; CPT 47562; principal; 2023-09-05 08:00)
DX: K80.10 Calculus of gallbladder with chronic cholecystitis without obstruction (principal)
CPT/HCPCS: 47562; 00790; 81025; 88304; J0665; J0690; J1100; J1170; J1630; J1885; J2405; J2704; J2710; J3010; J7120

== ENCOUNTER 2023-10-01 10:32 | Outpatient (CLI) | payer OTHER, SELFPAY ==
--- OUTSIDE RECORDS SUMMARY | 2023-10-01 10:43 | XMS_ITS | Clinical Summary ---
Author Organization [facility] Address [place], [place] [address] Care Team Providers Care Personnel Research Psychologist Name Role Phone Unavailable Primary Care Provider Unavailabl e Allergies No known active allergies Medications Medication Sig Dispensed Refills Start Date End Date Status PNV #[id number] acid-dha 35 mg iron-5 mg iron-1 mg [...] Date Resolved Date Acute pulmonary edema 08/12/20222022 Encounters Date Type Department Care Team Description 09/05/2023 Lab Requisition [facility] [phone] Dione Winslow MD from Last 3 Months Social History Tobacco Use Types Packs/Day Years [...] CDT Plan of Treatment Not on file Procedures Procedure Name Priority Date/Time Associated Diagnosis Comments LAB TRACKING EVENT Routine 09/05/2023 9: 57 AM CDT PATH TISSUE EXAM Routine 09/05/2023 9:42 AM CDT from Last 3 Months Results * LAB TRACKING EVENT (09/05/2023 9:57 AM CDT) Other (Other) Client Collect / Unknown 09/05/2023 9:57 AM CDT 09/05/2023 10:14 PM CDT Dione Winslow MD LAB BILL ONLY [facility] [address] [place] [address], * PATH TISSUE EXAM (09/05/2023 9:42 AM CDT) Case Report Pathology Report ?Case: [id number] ? Authorizing Provider: ??Dione Winslow MD ??Collected: ? 09/05/2023 0942 ? Ordering Location: ? [facility] ?Received: ?09/06/2023 0944 ? Pathologist: ? Yassine Brown, ? MD ? Specimen: ?Gallbladder ? 09/10/2023 3:14 PM CDT [employer] [facility]AT[facility] LABORATORY Final Diagnosis A) GALLBLADDER, CHOLECYSTECTOMY: 1. Acute and chronic cholecystitis 2. Cholelithiasis 3. Negative for dysplasia and malignancy 09/10/2023 3:14 PM CDT [facility] Clinical Information Chronic cholecystitis 09/10/2023 3:14 PM CDT [facility] Gross Description A) Received in formalin, labeled with the patient's name and gallbladder, is a 4.5 x 2.2 x 1.1 cm intact gallbladder. ??There are multiple yellow gallstones identified. There are no mucosal lesions identified. The average wall thickness is 0.1 cm. There is no abnormal wall thickening identified. No cystic duct lymph node is identified. Patient Representative sections are submitted in one cassette. ANAYA 09/06/2023 09/10/2023 3:14 PM CDT [facility] Microscopic Description The final diagnosis is based on microscopic examination of appropriate sections of all specimens. 09/10/2023 3:14 PM CDT [facility] Additional Information Interpreted at [facility] - [address] [address] 09/10/2023 3:[address] [facility] Other SPECIMEN FROM GALLBLADDER / Unknown 09/05/2023 9:42 AM CDT 09/06/2023 9:44 AM CDT Dione Winslow MD PATHOLOGY/CYTOLO [facility] [address] [place] [address], [place] from Last 3 Months Advance Directives * Full Code (Latest Code [...]
== END 2023-10-01 10:33 | disposition home or self-care (01) ==
PROVIDERS: PCP Nurse Practitioner Family; Visit Provider Nurse Practitioner Family
DX: Z00.00 Encounter for general adult medical examination without abnormal findings (principal); E66.9 Obesity, unspecified; Z13.6 Encounter for screening for cardiovascular disorders
CPT/HCPCS: 80061

== ENCOUNTER 2023-10-15 09:22 | Outpatient (CLI) | payer OTHER, SELFPAY ==
--- OUTSIDE RECORDS SUMMARY | 2023-10-16 11:29 | XMS_ITS | Clinical Summary ---
Author Organization [facility] Address [place], [place] [address] Care Team Providers Care Mining Helper Name Role Phone Unavailable Primary Care Provider Unavailabl e Allergies No known active allergies Medications Medication Sig Dispensed Refills Start Date End Date Status PNV #04-qjbd-jowsb acid-dha 35 mg iron-5 mg iron-1 mg [...] Encounters Date Type Department Care Team Description 10/01/2023 Lab Requisition [facility] [phone] Kelsie Calabrese NP 09/05/2023 Lab Requisition [facility] [phone] Dione Winslow MD from Last 3 Months [...] Associated Diagnosis Comments LAB TRACKING EVENT Routine 10/01/2023 10 :00 AM CDT MOVIE STUNT PERFORMER THIN PREP PAP SCREEN IMAGED Routine 10/01/2023 10:00 AM CDT LAB TRACKING EVENT Routine 09/05/2023 9: 57 AM CDT PATH TISSUE EXAM Routine 09/05/2023 9:42 AM CDT from Last 3 Months Results * LAB TRACKING EVENT (10/01/2023 10:00 AM CDT) Only the most recent of2 resultswithin the time period is included. Other (Other) Client Collect / Unknown 10/01/2023 10:00 AM CDT 10/01/2023 10:05 PM CDT Kelsie Calabrese NP LAB BILL ONLY [employer] [facility] [address] [place] [address], * MOVIE STUNT PERFORMER THIN PREP PAP SCREEN IMAGED (10/01/2023 10:00 AM CDT) Case Report Gynecologic Cytology Report ? Case: [id number] ? Authorizing Provider: ??Kelsie Calabrese, [place] ?Collected: ? 10/01/2023 1000 ? Ordering Location: ? [facility] ?Received: ?10/02/2023 1126 ? First Screen: ?Baccam, Minie ? Rescreen: ?Hi Costello ? Specimen: ?MOVIE STUNT PERFORMER ThinPrep Vial Screening, Cervical/Vaginal ? 10/09/2023 9:47 AM CDT [facility] EN[facility]AL LABORATORY INTERPRETATION/ RESULT NEGATIVE FOR INTRAEPITHELIAL LESION OR MALIGNANCY (NIL) (none) 10/09/2023 9:[address] [facility] IMEN ADEQUACY Satisfactory for evaluation No endocervical component seen 10/09/2023 9:47 AM CDT [facility] HPV REQUEST HPV not requested 2023 9:47 AM CDT [facility] Date of LMP 10/09/2023 9:47 AM CDT [facility] Comment:2 weeks ago Last Pap Date 10/09/2023 9:47 AM CDT [facility] Comment:uncertain Last Pap Result NIL 9:47 AM CDT [facility] Abnormal Pap or [place] Bx in last 5 years Yes 10/09/2023 9:47 AM CDT [facility] Menstrual Status Regular Periods 10/09/2023 9:47 AM CDT [facility] [place] Bx Done Today No 10/09/2023 9:47 AM CDT [facility] Additional Information 10/09/2023 9:47 AM CDT [facility] Comment: Interpreted at [facility] - [address] [facility] [address] [address] Automated Review Successful 10/09/2023 9:47 AM CDT [facility] Comment:Specimen processed s uccessfully by automated telegraph office telephone clerk device, ThinPrep Imaging System, [employer] Note The pap test is a screening technique, not a diagnostic procedure. It is used primarily to screen for squamous cancers and precursor lesions. Published studies have shown that it is subject to both false negative and false positive results. The pap test should not be used as the sole means to diagnose or exclude pre-malignant and malignant lesions. 10/09/2023 9:47 AM CDT [facility] Other (Cervical/Vagina l) 10/01/2023 10:00 AM CDT 10/02/2023 11:26 AM CDT Kelsie Calabrese MANUFACTURING TECHNICIAN PATHOLOGY/CYTOLOGY [facility] LABORATORY [address] [place] [address], * PATH TISSUE EXAM (09/05/2023 9:42 AM CDT) Case Report Pathology Report ?Case: [id number] ? Authorizing Provider: ??Dione Winslow MD ??Collected: ? 09/05/2023 0942 ? Ordering Location: ? [facility] ?Received: ?09/06/2023 0944 ? Pathologist: ? Yassine Brown, ? MD ? Specimen: ?Gallbladder ? 09/10/2023 3:14 PM CDT [facility] Final Diagnosis A) GALLBLADDER, CHOLECYSTECTOMY: 1. Acute and chronic cholecystitis 2. Cholelithiasis 3. Negative for dysplasia and malignancy 09/10/2023 3:[address] [facility] Clinical Information Chronic cholecystitis 09/10/2023 3:14 PM CDT [facility] Gross Description A) Received in formalin, labeled with the patient's name and gallbladder, is a 4.5 x 2.2 x 1.1 cm intact gallbladder. ??There are multiple yellow gallstones identified. There are no mucosal lesions identified. The average wall thickness is 0.1 cm. There is no abnormal wall thickening identified. No cystic duct lymph node is identified. Coal Picker sections are submitted in one cassette. ANAYA 09/06/2023 09/10/2023 3:[address] [facility] Microscopic Description The final diagnosis is based on microscopic examination of appropriate sections of all specimens. 09/10/2023 3:[address] [facility] Additional Information Interpreted at [facility] - [address] [facility] [address], [place] [address] 09/10/2023 3:[address] [facility] Other SPECIMEN FROM GALLBLADDER / Unknown 09/05/2023 9:42 AM CDT 09/06/2023 9:44 AM CDT Dione Winslow MD [facility] [address] [place] [address], from Last 3 Months Advance Directives * [...]
== END 2023-10-15 09:23 | disposition home or self-care (01) ==
LOC: NFLDREF 10-16 11:27
PROVIDERS: PCP Nurse Practitioner Family; Referring Provider Nurse Practitioner Family; Visit Provider Advanced Practice Midwife
DX: Z87.59 Personal history of other complications of pregnancy, childbirth and the puerperium (principal)
CPT/HCPCS: 84702

== ENCOUNTER 2023-10-17 09:30 | Outpatient (CLI) | payer OTHER, SELFPAY ==
--- OUTSIDE RECORDS SUMMARY | 2023-10-18 08:56 | XMS_ITS | Clinical Summary ---
Author Organization [facility] Address [place], [place] [address] Care Team Providers Care Catering Server Name Role Phone Unavailable Primary Care Provider Unavailabl e Allergies No known active allergies Medications Medication Sig Dispensed Refills Start Date End Date Status PNV #[id number] acid-dha 35 mg iron-5 mg iron-1 mg [...] Description 10/01/2023 Lab Requisition [facility] [phone] Kelsie Calabrese NP 09/05/2023 Lab Requisition [facility] C[facility] [phone] Dione Winslow MD from Last 3 Months [...] EVENT Routine 10/01/2023 10 :00 AM CDT EVENT ORGANIZER THIN PREP PAP SCREEN IMAGED Routine 10/01/2023 [...] CDT Kelsie Calabrese NP LAB BILL ONLY [employer] [facility] [address] [place] [address], * EVENT ORGANIZER THIN PREP PAP SCREEN IMAGED (10/01/2023 10:00 AM CDT) Case Report Gynecologic Cytology Report ? Case: [id number] ? Authorizing Provider: ??Kelsie Calabrese, [place] ?Collected: ? 10/01/2023 1000 ? Ordering Location: ? [facility] ?Received: ?10/02/2023 1126 ? First Screen: ?Baccam, Minie ? Rescreen: ?Hi Costello ? Specimen: ?EVENT ORGANIZER ThinPrep Vial Screening, Cervical/Vaginal ? 10/09/2023 9:47 AM CDT [facility]-C ENTRAL LABORATORY INTERPRETATION/ RESULT NEGATIVE FOR INTRAEPITHELIAL LESION OR MALIGNANCY (NIL) (none) 10/09/2023 9:[address] [facility] IMEN ADEQUACY Satisfactory for evaluation No endocervical component seen 10/09/2023 9:47 AM CDT [facility] EN[facility] HPV REQUEST HPV not requested 2023 9:47 AM CDT [facility] Date of LMP 10/09/2023 9:47 AM CDT [facility] Comment:2 weeks ago Last Pap Date 10/09/2023 9:47 AM CDT [facility] Comment:uncertain Last Pap Result NIL 9:47 AM CDT [facility] Abnormal Pap or [place] Bx in last 5 years Yes 10/09/2023 9:47 AM CDT [facility] Menstrual Status Regular Periods 10/09/2023 9:47 AM CDT [facility] [place] Bx Done Today No 10/09/2023 9:47 AM CDT [facility] Additional Information 10/09/2023 9:47 AM CDT [facility] Comment: Interpreted at [facility], Central Laboratory - [address] [facility] [address], [place] [address] Automated Review Successful 10/09/2023 9:47 AM CDT [facility] Comment:Specimen processed s uccessfully by automated leno sewer device, ThinPrep Imaging System, [employer] Note The pap test is a [...] and malignant lesions. 10/09/2023 9:47 AM CDT [facility] Other (Cervical/Vagina l) 10/01/2023 10:00 AM CDT 10/02/2023 11:26 AM CDT Kelsie Calabrese ADMISSIONS SUPERVISOR PATHOLOGY/CYTOLOGY [facility]AL LAB[facility] [address] [place] [address], * PATH TISSUE EXAM (09/05/2023 9:42 AM CDT) Case Report Pathology Report ?Case: [id number] ? Authorizing Provider: ??Dione Winslow MD ??Collected: ? 09/05/2023 0942 ? Ordering Location: ? [facility] ?Received: ?09/06/2023 0944 ? Pathologist: ? Yassine Brown, ? MD ? Specimen: ?Gallbladder ? 09/10/2023 3:14 PM CDT [facility]- ENTRAL LABORATORY Final Diagnosis A) GALLBLADDER, CHOLECYSTECTOMY: 1. Acute and chronic cholecystitis 2. Cholelithiasis 3. Negative for dysplasia and malignancy 09/10/2023 3:[address] [facility] Clinical Information Chronic cholecystitis 09/10/2023 3:14 PM CDT [facility] Gross Description A) Received in formalin, labeled with the patient's name and gallbladder, is a 4.5 x 2.2 x 1.1 cm intact gallbladder. ??There are multiple yellow gallstones identified. There are no mucosal lesions identified. The average wall thickness is 0.1 cm. There is no abnormal wall thickening identified. No cystic duct lymph node is identified. Card Sorter sections are submitted in one cassette. ANAYA 09/06/2023 09/10/2023 3:[address] [facility] Microscopic Description The final diagnosis is based on microscopic examination of appropriate sections of all specimens. 09/10/2023 3:[address] [facility] Additional Information Interpreted at [facility] Laboratory - [address] [facility] [address] [address] 09/10/2023 3:[address] [facility] Other SPECIMEN FROM GALLBLADDER / Unknown 09/05/2023 9:42 AM CDT 09/06/2023 9:44 AM CDT Dione Winslow MD PATHOLOGY/CYTOLO GY [facility] [address] [place] [address], from Last 3 Months Advance Directives * [...]
== END 2023-10-17 09:31 | disposition home or self-care (01) ==
LOC: NFLDREF 10-18 08:53
PROVIDERS: PCP Nurse Practitioner Family; Referring Provider Nurse Practitioner Family; Visit Provider Advanced Practice Midwife
DX: Z87.59 Personal history of other complications of pregnancy, childbirth and the puerperium (principal)
CPT/HCPCS: 84702

== ENCOUNTER 2023-11-07 09:04 | Outpatient (CLI) | payer OTHER, SELFPAY ==
--- OUTSIDE RECORDS SUMMARY | 2023-11-07 09:07 | XMS_ITS | Clinical Summary ---
Author Organization [facility] Address [place], [place] [address] Care Team Providers Care Assisted Living Assistant Name Role Phone Unavailable Primary Care Provider Unavailabl e Allergies No known active allergies Medications Medication Sig Dispensed Refills Start Date End Date Status PNV #[id number] acid-dha 35 mg iron-5 mg iron-1 mg [...] Description 10/01/2023 Lab Requisition L [facility] [phone] Kelsie Calabrsee NP 09/05/2023 Lab Requisition [facility] C[facility]AL LAB [phone] Dione Winslow MD from Last 3 Months [...] EVENT Routine 10/01/2023 10 :00 AM CDT APPLIANCE REPAIR TECHNICIAN THIN PREP PAP SCREEN IMAGED Routine 10/01/2023 [...] CDT Kelsie Calabrese NP LAB BILL ONLY [employer] [facility]-CENTRAL LABORATORY [address] [place] [address], * APPLIANCE REPAIR TECHNICIAN THIN PREP PAP SCREEN IMAGED (10/01/2023 10:00 AM CDT) Case Report Gynecologic Cytology Report ? Case: [id number] ? Authorizing Provider: ??Kelsie Calabrese, [place] ?Collected: ? 10/01/2023 1000 ? Ordering Location: ? [facility] CENTRAL LAB ?Received: ?10/02/2023 1126 ? First Screen: ?Baccam, Minie ? Rescreen: ?Hi Costello ? Specimen: ?APPLIANCE REPAIR TECHNICIAN ThinPrep Vial Screening, Cervical/Vaginal ? 10/09/2023 9:47 AM CDT [facility]C ENTRAL LABORATORY INTERPRETATION/ RESULT NEGATIVE FOR INTRAEPITHELIAL LESION OR MALIGNANCY (NIL) (none) 10/09/2023 9:47 AM CDT [facility] IMEN ADEQUACY Satisfactory for evaluation No endocervical component seen 10/09/2023 9:47 AM CDT [facility] ENTRAL LABORATORY HPV REQUEST HPV not requested 2023 9:47 AM CDT [facility] ENTR[facility] LAB[facility]ATORY Date of LMP 10/09/2023 9:47 AM CDT [facility] EN[facility] Comment:2 weeks ago Last Pap Date 10/09/2023 9:47 AM CDT [facility] ENTR[facility] LABORATORY Comment:uncertain Last Pap Result NIL 9:47 AM CDT [facility] EN[facility] LAB[facility] Abnormal Pap or [place] Bx in last 5 years Yes 10/09/2023 9:47 AM CDT [facility] EN[facility] LAB[facility] Menstrual Status Regular Periods 10/09/2023 9:47 AM CDT [facility] EN[facility] LABORATORY [place] Bx Done Today No 10/09/2023 9:47 AM CDT [facility] Additional Information 10/09/2023 9:47 AM CDT [facility] EN[facility] Comment: Interpreted at [facility], Central Laboratory - [address] [facility] [address] [address] Automated Review Successful 10/09/2023 9:47 AM CDT [facility] LABORATORY Comment:Specimen processed s uccessfully by automated chain maker loom control device, ThinPrep Imaging System, [employer] Note The pap test is a [...] and malignant lesions. 10/09/2023 9:47 AM CDT [facility] ENTRAL LABORAT[facility] Other (Cervical/Vagina l) 10/01/2023 10:00 AM CDT 10/02/2023 11:26 AM CDT Kelsie Calabrese SUPERVISOR POWDER AND PRIMER CANNING PATHOLOGY/CYTOLOGY [facility]-CENTRAL LABORATORY [address] [place] [address], * PATH TISSUE EXAM (09/05/2023 9:42 AM CDT) Case Report Pathology Report ?Case: [id number] ? Authorizing Provider: ??Dione Winslow MD ??Collected: ? 09/05/2023 0942 ? Ordering Location: ? [facility] CENTRAL LAB ?Received: ?09/06/2023 0944 ? Pathologist: ? Yassine Brown, ? MD ? Specimen: ?Gallbladder ? 09/10/2023 3:14 PM CDT [facility]- ENTRAL LABORATORY Final Diagnosis A) GALLBLADDER, CHOLECYSTECTOMY: 1. Acute and chronic cholecystitis 2. Cholelithiasis 3. Negative for dysplasia and malignancy 09/10/2023 3:14 PM CDT [facility] Clinical Information Chronic cholecystitis 09/10/2023 3:14 PM CDT [facility] EN[facility] Gross Description A) Received in formalin, labeled with the patient's name and gallbladder, is a 4.5 x 2.2 x 1.1 cm intact gallbladder. ??There are multiple yellow gallstones identified. There are no mucosal lesions identified. The average wall thickness is 0.1 cm. There is no abnormal wall thickening identified. No cystic duct lymph node is identified. Die Sinker sections are submitted in one cassette. ANAYA 09/06/2023 09/10/2023 3:14 PM CDT [facility] Microscopic Description The final diagnosis is based on microscopic examination of appropriate sections of all specimens. 09/10/2023 3:14 PM CDT [facility] Additional Information Interpreted at [facility] Laboratory - [address] [facility] [address] [address] 09/10/2023 3:14 PM CDT [facility] Other SPECIMEN FROM GALLBLADDER / Unknown 09/05/2023 9:42 AM CDT 09/06/2023 9:44 AM CDT Dione Winslow MD PATHOLOGY/CYTOLO GY [facility] [address] [place] [address], from Last 3 Months Advance Directives * [...]
--- NOTE | 2023-11-07 09:15 | CRLHL7_ITS ---
For Patients: As a result of the Century Cures Act, medical imaging exams and procedure reports are released immediately into your electronic medical record. You may view this report before your referring provider. If you have questions, please contact your health care provider. INDICATION: First trimester scan, establish dates. COMPARISON: None. TECHNIQUE: Real-time cleveland-scale imaging of the pelvis was performed. FINDINGS: Sonographic imaging demonstrates a single living intrauterine gestation. The embryo demonstrates a regular cardiac rate measuring 157 beats per minute. The embryo`s crown-rump length measurement of 1.1 cm corresponds to a gestational age of 7 weeks 1 day with a sonographic due date of 06/24/2024. There is a normal-appearing yolk sac. There are no gross abnormalities noted within the embryo at this early state of development. The gestational sac has a normal appearance. There is a 6 x 6 x 10 mm perigestational hemorrhage. The amount of fluid within the sac appears appropriate for gestational age. The cervix is closed. The myometrium appears normal. Corpus luteal cyst measures 19 x 12 x 15 millimeters on the left. Normal right ovary. There are no suspicious fluid collections noted in the cul-de-sac. IMPRESSION: Single living intrauterine measuring 7 weeks 1 day and sonographic due date of 06/24/2024. Subchorionic hemorrhage measures 6 x 6 x 10 millimeters. Dictated by Nba Hsu MD @ 11/08/2023 2:23:39 PM (Electronically Signed)
== END 2023-11-07 09:05 | disposition home or self-care (01) ==
LOC: US 09:05
PROVIDERS: PCP Nurse Practitioner Family; Visit Provider Advanced Practice Midwife
DX: Z34.91 Encounter for supervision of normal pregnancy, unspecified, first trimester (principal); O20.9 Hemorrhage in early pregnancy, unspecified; Z3A.01 Less than 8 weeks gestation of pregnancy
CPT/HCPCS: 76817; 84443; 86703; 86706; 86803; 86850; 86900; 86901; 87086; 87340

== ENCOUNTER 2023-11-07 10:00 | Outpatient (CLI) | payer OTHER, SELFPAY ==
--- OUTSIDE RECORDS SUMMARY | 2023-11-07 10:02 | XMS_ITS | Clinical Summary ---
Author Organization [facility] Address [place], [place] [address] Care Team Providers Care Label Stamper Name Role Phone Unavailable Primary Care Provider Unavailabl e Allergies No known active allergies Medications Medication Sig Dispensed Refills Start Date End Date Status PNV #[id number] acid-dha 35 mg iron-5 mg iron-1 mg [...] Description 10/01/2023 Lab Requisition L CENTRAL LAB [phone] Kelsie Calabrese NP 09/05/[address] [facility] CENTRAL LAB [phone] Dione Winslow MD from Last 3 Months [...] EVENT Routine 10/01/2023 10 :00 AM CDT LENDING MANAGER THIN PREP PAP SCREEN IMAGED Routine 10/01/2023 [...] CDT Kelsie Calabrese NP LAB BILL ONLY [employer] [facility] [address] [place] [address], * LENDING MANAGER THIN PREP PAP SCREEN IMAGED (10/01/2023 10:00 AM CDT) Case Report Gynecologic Cytology Report ? Case: [id number] ? Authorizing Provider: ??Kelsie Calabrese, [place] ?Collected: ? 10/01/2023 1000 ? Ordering Location: ? [facility] C[facility] LAB ?Received: ?10/02/2023 1126 ? First Screen: ?Baccam, Minie ? Rescreen: ?Hi Costello ? Specimen: ?LENDING MANAGER ThinPrep Vial Screening, Cervical/Vaginal ? 10/09/2023 9:47 AM CDT [facility]-C ENTRAL LABORATORY INTERPRETATION/ RESULT NEGATIVE FOR INTRAEPITHELIAL LESION OR MALIGNANCY (NIL) (none) 10/09/2023 9:47 AM CDT [facility] IMEN ADEQUACY Satisfactory for evaluation No endocervical component seen 10/09/2023 9:47 AM CDT [facility] ENTRAL LABORATORY HPV REQUEST HPV not requested 2023 9:47 AM CDT [facility] ENTRAL LABORATORY Date of LMP 10/09/2023 9:47 AM CDT [facility] EN[facility] LABORATORY Comment:2 weeks ago Last Pap Date 10/09/2023 9:47 AM CDT [facility] ENTR[facility] LABORAT[facility] Comment:uncertain Last Pap Result NIL 9:47 AM CDT [facility] ENTR[facility] LABORATORY Abnormal Pap or [place] Bx in last 5 years Yes 10/09/2023 9:47 AM CDT [facility] EN[facility] LABORATORY Menstrual Status Regular Periods 10/09/2023 9:47 AM CDT [facility] EN[facility] LABORATORY [place] Bx Done Today No 10/09/2023 9:47 AM CDT [facility] Additional Information 10/09/2023 9:47 AM CDT [facility] EN[facility] LABORATORY Comment: Interpreted at [facility], Central Laboratory - [address] [facility] [address] [address] Automated Review Successful 10/09/2023 9:47 AM CDT [facility] Comment:Specimen processed s uccessfully by automated pr specialist device, ThinPrep Imaging System, [employer] Note The pap test is a [...] and malignant lesions. 10/09/2023 9:47 AM CDT [facility] ENTR[facility] LABORAT[facility] Other (Cervical/Vagina l) 10/01/2023 10:00 AM CDT 10/02/2023 11:26 AM CDT Kelsie Calabrese USPS LETTER CARRIER PATHOLOGY/CYTOLOGY [facility]-CENTRAL LABORATORY [address] [place] [address], * PATH TISSUE EXAM (09/05/2023 9:42 AM CDT) Case Report Pathology Report ?Case: [id number] ? Authorizing Provider: ??Dione Winslow MD ??Collected: ? 09/05/2023 0942 ? Ordering Location: ? [facility] CENTRAL LAB ?Received: ?09/06/2023 0944 ? Pathologist: ? Yassine Brown, ? MD ? Specimen: ?Gallbladder ? 09/10/2023 3:14 PM CDT [facility]- ENTRAL LABORATORY Final Diagnosis A) GALLBLADDER, CHOLECYSTECTOMY: 1. Acute and chronic cholecystitis 2. Cholelithiasis 3. Negative for dysplasia and malignancy 09/10/2023 3:14 PM CDT [facility] Clinical Information Chronic cholecystitis 09/10/2023 3:14 PM CDT [facility] ENTR[facility] LABORAT[facility] Gross Description A) Received in formalin, labeled with the patient's name and gallbladder, is a 4.5 x 2.2 x 1.1 cm intact gallbladder. ??There are multiple yellow gallstones identified. There are no mucosal lesions identified. The average wall thickness is 0.1 cm. There is no abnormal wall thickening identified. No cystic duct lymph node is identified. Auto Air Conditioning Installer sections are submitted in one cassette. ANAYA 09/06/2023 09/10/2023 3:14 PM CDT [facility] Microscopic Description The final diagnosis is based on microscopic examination of appropriate sections of all specimens. 09/10/2023 3:14 PM CDT [facility] Additional Information Interpreted at [facility] Laboratory - [address] [facility] [address] [address] 09/10/2023 3:14 PM CDT [facility] Other SPECIMEN FROM GALLBLADDER / Unknown 09/05/2023 9:42 AM CDT 09/06/2023 9:44 AM CDT Dione Winslow MD PATHOLOGY/CYTOLO GY [facility] [address] [place] [address], from Last 3 Months Advance Directives * [...]
== END 2023-11-07 10:01 | disposition home or self-care (01) ==
PROVIDERS: PCP Nurse Practitioner Family; Visit Provider Advanced Practice Midwife
DX: Z34.91 Encounter for supervision of normal pregnancy, unspecified, first trimester (principal); Z3A.01 Less than 8 weeks gestation of pregnancy
CPT/HCPCS: 84443; 86592; 86703; 86704; 86706; 86762; 86787; 86803; 86850; 86900; 86901; 87086; 87340

== ENCOUNTER 2024-02-06 12:44 | Outpatient (CLI) | payer OTHER, SELFPAY ==
--- OUTSIDE RECORDS SUMMARY | 2024-02-06 12:46 | XMS_ITS | Clinical Summary ---
Author Organization [facility] Address [place], [place] [address] Care Team Providers Care Batch Freezer Name Role Phone Unavailable Primary Care Provider Unavailabl e Allergies No known active allergies Medications Medication Sig Dispensed Refills Start Date End Date Status PNV #[id number] acid-dha 35 mg iron-5 mg iron-1 mg [...]
--- NOTE | 2024-02-06 13:00 | CRLHL7_ITS ---
For Patients: As a result of the Century Cures Act, medical imaging exams and procedure reports are released immediately into your electronic medical record. You may view this report before your referring provider. If you have questions, please contact your health care provider. INDICATION: 2nd trimester anatomical survey. TECHNIQUE: Ultrasound OB pelvis transabdominal. Real-time cleveland-scale imaging of the fetus was performed as well as color Doppler and spectral Doppler analysis of the umbilical artery. COMPARISON: None FINDINGS: Intrauterine gestation: Single. heart rate: Regular, 137 bpm. presentation: Cephalic. Placenta: Anterior, without previa. Cervix: 5 centimeters, closed. Amniotic fluid: 5.6 cm deepest pocket. Biometry: Biparietal diameter: 39.4 percentile. Head circumference: 35.9 percentile. Abdominal circumference: 38.3 percentile. Femur length: 27.8 percentile. EFW: 356 gm, 31.8 %. Anatomical Survey: 4 chamber heart: Visualized. RVOT: Suboptimal visualization. LVOT: Suboptimal visualization Three-vessel view: Suboptimal visualization. Three-vessel trachea view: Suboptimal visualization Stomach: Visualized. Kidneys: Visualized. Bladder: Visualized. Spine: Visualized. Sacrum: Visualized. 4 extremities: Visualized. Cord insertion: Visualized. 3V cord: Visualized. Face: Visualized. Nose: Visualized. Lips: Visualized. Cerebellum: Visualized. Cisterna Magna: Visualized. Lateral ventricles: Visualized. Nuchal fold: Visualized IMPRESSION: 1. Sanchez intrauterine in cephalic presentation. Cardiac activity is present. 2. Estimated gestational age of 20 weeks, 5 days based on LMP is concordant with biometry. Estimated weight is 356 grams, which is at 31.8 percentile. 3. Suboptimal visualization of the RVOT, LVOT, three-vessel view and three-vessel trachea views. Remainder of the anatomic survey is unremarkable. Follow up evaluation in 2-3 weeks is recommended to complete anatomic survey. 4. Normal amniotic fluid. 5. Anterior placenta without previa. Dictated by Linda Herrera MD @ 02/07/2024 2:07:47 PM (Electronically Signed)
== END 2024-02-06 12:45 | disposition home or self-care (01) ==
LOC: US 12:45
PROVIDERS: PCP Nurse Practitioner Family; Visit Provider Advanced Practice Midwife
DX: Z34.92 Encounter for supervision of normal pregnancy, unspecified, second trimester (principal); Z3A.20 20 weeks gestation of pregnancy
CPT/HCPCS: 76805; 76817

== ENCOUNTER 2024-03-03 14:55 | Outpatient (CLI) | payer OTHER, SELFPAY ==
--- OUTSIDE RECORDS SUMMARY | 2024-03-03 14:57 | XMS_ITS | Clinical Summary ---
Author Organization [facility] & [facility] Address [place], [place] [address] Care Team Providers Care Commercial Relief Driver Name Role Phone Unavailable Primary Care Provider Unavailabl e Allergies No known active allergies Medications PNV #[id number] acid-dha 35 mg iron-5 mg iron-1 mg cap Take 1 Capsule by mouth once daily. Active aspirin (ECOTRIN) 81 mg enteric coated tablet Take 81 mg by mouth once daily. Active pyridoxine, vitamin B6, (Vitamin B-6) 25 mg tabletIndicatio ns:excessive vomiting in ,nause a gravidarum Take 25 mg by mouth at bedtime if needed. Active doxylamine (UNISOM) 25 mg tabletIndicatio ns:nausea gravidarum Take 25 mg by mouth at [...] and Fami ly Not on file 08/10/2022 Comments No Sex and Gender Information Value Date Recorded Sex Assigned at Not on file Legal Sex Female 8:39 AM CDT Gender Identity Not on file Sexual Orientation [...] 94 08/14/2022 8:00 AM CDT Temperature 36.9 C (98.5 F) 08/14/2022 8:00 AM CDT Respiratory Rate 18 08/14/2022 8:00 AM CDT Oxygen Saturation 96% 08/14/2022 8:00 AM CDT Inhaled Oxygen Concentration - - Weight 87.2 kg (192 lb 3.9 oz) 08/11/2022 10:00 PM CDT Height 157 cm (5' 1.81) 08/10/2022 12:00 PM CDT Body Mass Index 35.38 08/10/2022 12:00 PM CDT Plan of Treatment Not on file Insurance ANIA CHAVES [id number] ANIA MOLINA [id number] Advance Directives * Full Code (Latest Code [...]
--- NOTE | 2024-03-03 15:00 | CRLHL7_ITS ---
For Patients: As a result of the Century Cures Act, medical imaging exams and procedure reports are released immediately into your electronic medical record. You may view this report before your referring provider. If you have questions, please contact your health care provider. OB ULTRASOUND FOLLOWUP 03/03/2024 CLINICAL HISTORY: Followup missing anatomy. COMPARISON: 02/06/2024. TECHNIQUE: Transabdominal. FINDINGS: CERVIX: Not visualized. POSITIONING: Vertex. AMNIOTIC FLUID: 7.2 cm. PLACENTA: Technique: TA. PLACENTA POSITION: Anterior. DOPPLERS: Heart Rate: 137 bpm. IMPRESSION: Four chamber heart, ventricular outflow tracts, three vessel view and three vessel trachea view are obtained today and appear normal. Ru Adame M.D. Body/Diagnostic Radiologist [employer] [facility] [email or web address] Transcribed: 10:44 pm DW/Dictated by: Ru Adame MD @ 03/04/2024 10:04:00 AM (Electronically Signed)
== END 2024-03-03 14:56 | disposition home or self-care (01) ==
LOC: US 14:55
PROVIDERS: PCP Nurse Practitioner Family; Visit Provider Advanced Practice Midwife
DX: Z34.92 Encounter for supervision of normal pregnancy, unspecified, second trimester (principal); Z3A.20 20 weeks gestation of pregnancy
CPT/HCPCS: 76815; 76816

== ENCOUNTER 2024-03-26 08:21 | Outpatient (CLI) | payer BC, SELFPAY | END 2024-03-26 08:22 | disposition home or self-care (01) | LOC: NFLDREF 09:07 | PROVIDERS: PCP Nurse Practitioner Family; Referring Provider Nurse Practitioner Family; Visit Provider Advanced Practice Midwife | DX: Z34.82 Encounter for supervision of other normal pregnancy, second trimester (principal) | CPT/HCPCS: 82951; 82952; 86592 ==

== ENCOUNTER 2024-05-26 17:03 | Outpatient (CLI) | payer BC, SELFPAY ==
[2024-05-28 12:31] LABS: Strep B DNA Probe Negative (Negative)
[2024-05-28 13:56] LABS: Strep B Susceptibility Needed? No
== END 2024-05-26 17:04 | disposition home or self-care (01) ==
LOC: NFLDREF 17:03
PROVIDERS: PCP Nurse Practitioner Family; Visit Provider Advanced Practice Midwife
DX: Z34.93 Encounter for supervision of normal pregnancy, unspecified, third trimester (principal); Z3A.36 36 weeks gestation of pregnancy
CPT/HCPCS: 87081; 87653

== ENCOUNTER 2024-06-18 18:32 | Inpatient (IN) | payer BC, SELFPAY ==
[2024-06-18] VITALS (9 sets, daily range): BP systolic 104–110; BP diastolic 63; PULSE 72–89; RESP 16; TEMP 36.5–36.8; O2SAT 96
--- NOTE | 2024-06-18 19:10 | W.PM.LDBA ---
Subjective History of Present Illness Date Seen: 06/18/24 Narrative: Patient is being admitted to Labor and Delivery for gross rupture of membranes with clear fluid at 1615. She is a 28 year old at 39 5/7 weeks gestation. Her full history and physical was dictated by me on 06/02/2024. Please see this for details. She will be supported by her Lee, who ran to get her some food to eat. she is not yet feeling pain with contractions, but does not tightening of her belly. she is planning an epidural for pain relief and AMTSL. See below for specific issues. Specific Issues/Plans : Hilario H&P completed 06/02/2024 by Jerome BARAJAS 1. Obesity, BMI 33.4 Hemoglobin A1c: 5.1 2. History of recurrent loss Blighted ovum 03/14, ectopic August 2021, treated with methotrexate 3. History of Polyhydramnios with previous 4. Failed 1 hour gct - normal 3 hour (all values) Imaginst tri: 11/07/2023-Single living intrauterine measuring 7 weeks 1 day and sonographic due date of 06/24/2024. Subchorionic hemorrhage measures 6 x 6 x 10 millimeters. Anatomy US:02/06/24 Normal findings Lev 1 COVID: initial series, not boosted, declined Flu: 01/09/24 TDAP: 04/29/24 RSV: 04/29/2024 32wk Mental Health: 34wk Hgb: 13.5 GBS: 05/26/2024 Negative OB - Problem Based A/P Additional Plan (1) PROM (premature rupture of membranes): Status: Acute (2) Supervision of other normal : Status: Acute (3) Adult BMI 33.0-33.9 kg/sq m: Problem details: Prepregnancy Status: Acute Plan ASSESSMENT:?? 28 at 39 5/7 weeks gestation?? complicated by:??Obesity Labor type: PROM at term, Early labor?? Category 1 FHR pattern.??? Labor complicated by: PROM?? GBS negative ?? PLAN:?? 1. Routine intrapartum cares as ordered. Reviewed increased risk of infection of ROM and correlation to vaginal exams. Reviewed current recommendation to augment labor by ACOG. Reviewed options of pumping to stimulate labor and expectant management. Continue with expectant management. Pt desires to determine next steps after her supper. 2. Monitoring per policy, intermittent?? 3. Planning medicated . Candidate for analgesia of choice.??? 4. Patient encouraged to reposition and ambulate to promote physiologic labor and .?? 5. Anticipate ? OB Exam Physical Exam Vital signs: Temp Pulse Resp BP Pulse Ox 98.0 F 73 16 104/63 96 06/18/24 18:19 06/18/24 18:21 06/18/24 18:19 06/18/24 18:21 06/18/24 18:20 Narrative: Vitals Reviewed Constitutional:? Alert and oriented x3 HEENT:? Normocephalic, atraumatic Neck:? Supple Lungs:? Clear to auscultation bilaterally Heart:? Regular rate and rhythm, no murmur, rub or gallop Abdomen:? Soft, nontender, and gravid. Vertex by Faisal's, confirmed with bedside US. Extremities:? No edema or erythema Cervix: deferred. NST: 135 bpm/moderate variability/accelerations present/decelerations absent/irregular contractions <1 min in duration, palpating mild
[2024-06-19] VITALS (42 sets, daily range): BP systolic 86–130; BP diastolic 50–79; PULSE 73–116; RESP 16; TEMP 36.2–36.9; O2SAT 91–100
--- NOTE | 2024-06-19 00:11 | P.OBPN_ITS ---
Subjective Date Seen: 06/19/24 Narrative: Silvia Has been trying to get labor going by doing the [employer]. She has been recently trying to rest. She is noting regular contractions about every 5 minutes and is requesting an epidural. She is supported by Lee. Objective Exam: Objective: Constitutional: Alert and oriented x3, mild distress, coping well Vital signs stable, see nurse documentation Abdomen: gravid, contractions palpate moderate with contractions and soft between Cervix: deferred NST: 140 bpm/minimal variability for about 15 min, then moderate returns/accelerations present/decelerations-occasional variables present/cont ractions q 5 min Vital Signs: Last Vital Signs Temp 98.3 F 06/18/24 23:15 Pulse 72 06/18/24 19:27 Resp 16 06/18/24 18:19 BP 110/63 06/18/24 19:27 Pulse Ox 96 06/18/24 18:20 Plan Plan: ASSESSMENT:?? 29 at 39 5/7 weeks gestation?? complicated by:??Obesity Labor type: PROM at term, Early labor?? Category 2 FHR pattern.??? Labor complicated by: PROM?? GBS negative ?? PLAN:?? 1. Routine intrapartum cares as ordered. Silvia agrees to a cervical check after she is comfortable with her epidural. 2. Monitoring per policy, continuous 3. Planning medicated . Candidate for analgesia of choice.??Anesthesia team notified of desire for epidural.? 4. Patient encouraged to reposition and ambulate to promote physiologic labor and .?? 5. Anticipate ?
[2024-06-19] MEDS: LACTATED RINGERS 1000 ML 1,000 ML IV (00:38)
[2024-06-19 00:58] LABS: Basophils Absolute Auto 0.02 K/uL (0.00-0.30); Basophils Percent Auto 0.2 % (0.0-3.0); Eosinophils Absolute Auto 0.15 K/uL (0.00-0.50); Eosinophils Percent Auto 1.5 % (0.0-7.0); Hemoglobin* 13.7 gm/dL (12.0-16.0); Immature Granulocytes Abs Auto 0.07 K/uL (0.00-0.30); Immature Granulocytes Pct Auto 0.7 %; Lymphocytes Absolute Auto 2.45 K/uL (0.90-2.90); Lymphocytes Percent Auto 25.1 % (20-44); Mean Corpuscular HGB Conc 35 gm/dL (32-36); Mean Corpuscular Hemoglobin 32 pg (26-34); Mean Corpuscular Volume 91 fL (80-100); Monocytes Percent Auto 5.5 % (0.0-11.0); Neutrophils Absolute Auto 6.52 K/uL (1.7-7.0); Platelet Count* 216 K/uL (140-440); RDW Coefficient of Variation % 14.4 % (11.5-15.5); White Blood Count* 9.75 K/uL (4.50-11.00)
[2024-06-19 01:00] LABS: Slide Review Reflex No
[2024-06-19] MEDS: LIDOCAINE 2% (PF) 5 ML VIAL EPIDURAL (01:34)
[2024-06-19] MEDS: ROPIVACAINE 0.2% 100 ml 100 ML 12 MG EPIDURAL (01:39)
--- NOTE | 2024-06-19 01:48 | P.ANBPRC_ITS ---
[facility] Medical History Obesity with body mass index (BMI) of 35.0 to 39.9 without comorbidity ?E66.9 - Obesity, unspecified (ICD-10) Choledocholithiasis ?K80.50 - Calculus of bile duct without cholangitis or cholecystitis without obstruction (ICD-10) Acute cholecystitis ?K81.0 - Acute cholecystitis (ICD-10) History of one miscarriage ?Z87.59 - Personal history of other complications of , childbirth and the puerperium (ICD-10) History of ectopic ?Z87.59 - Personal history of other complications of , childbirth and the puerperium (ICD-10) Surgical History History of cholecystectomy ?Z90.49 - Acquired absence of other specified parts of digestive tract (ICD- 10) Family History Father High cholesterol Paternal Grandfather High cholesterol Social History 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 Alcohol, 1/2 servings per week. No illicit drug use. Nonsmoker. What is your current living situation?: I presently have a place to live Problems where you live: no known problems In the past 12 months, utilities in danger of being shut off: no In past 12 months, lack of transportation kept you from medical appts, meetings, work, or getting things needed for daily living: no In the past 12 mos, have been you worried that your food would run out before you had money to buy more?: never true In the past 12 mos, the food you bought just didn't last and you didn't have money to buy more?: never true Highest level of school completed/degree received: Bachelor's degree Smoking Status: Never smoker Do you use any of these nicotine containing products: None Second hand tobacco smoke exposure: No How often do you have a drink containing alcohol: monthly or less Alcohol type: wine How many standard drinks containing alcohol do you have on a typical day: 1 or 2 How often do you have six or more drinks on one occasion: Never AUDIT-C Alcohol total score: 1 Non-prescribed substance use: denies use Caffeine: Yes How often does anyone, including family, friends and others, physically hurt you : never How often does anyone, including family, friends and others, insult or talk down to you: never How often does anyone, including family, friends and others, threaten you with harm: never How often does anyone, including family, friends and others, scream or curse at you: never Are you using contraception or practicing any form of control: No service: No Meds Home Medications and Allergies Home Medications ?Medication ?Instructions ?Recorded ?Confirmed ?Type vit 168-iron 27 mg-folic cap PO DAILY 11/07/23 06/16/24 History acid 800 mcg-omega3 235 mg capsule (One-A-Day -1) aspirin 81 mg tablet,delayed 81 mg PO QDAY 03/03/24 06/18/24 History release (Adult Low Dose Aspirin) Allergies Allergy/AdvReac Type Severity Reaction Status Date / Time No Known Drug Allergies Allergy Verified 06/10/24 15:14 Results Labs Labs: Laboratory Results - last 24 hr 06/19/24 00:50 WBC 9.75 RBC 4.30 Hgb 13.7 Hct 39.0 MCV 91 MCH 32 MCHC 35 RDW Coeff of Mary 14.4 Plt Count 216 Neut % (Auto) 67.0 Lymph % (Auto) 25.1 [place] % (Auto) 5.5 Eos % (Auto) 1.5 Baso % (Auto) 0.2 Neut # (Auto) 6.52 Lymph # (Auto) 2.45 [place] # (Auto) 0.50 Eos # (Auto) 0.15 Baso # (Auto) 0.02 Abs Immat Gran (auto) 0.07 Imm/Tot Granulo (auto) 0.7 Vital Signs Vital Signs: Last Vital Signs Temp 97.6 F 06/19/24 01:05 Pulse 81 06/19/24 01:45 Resp 16 06/18/24 18:19 BP 100/57 L 06/19/24 01:45 Pulse Ox 100 06/19/24 01:32 Height: 157.48 cm Anesthesia Procedures Epidural Insertion Patient Location: OB Start Time: : Stop Time: 02:00 Start Date: 06/19/24 Stop Date: 06/19/24 Reason for Block: procedure for pain Performed By: Aspen Morales Preanesthetic Checklist: IV checked, site marked, risks and benefits discussed, monitors and equipment checked, pre-op evaluation, timeout performed and anesthesia consent Prep: chlorhexidine gluconate Monitoring: blood pressure monitoring, continuous pulse oximetry and heart rate Approach: midline Vertebral Space: lumbar (1-5) Epidural Technique: JOSE ALFREDO saline Needle Type: Tuohy needle Injection Technique: continuous catheter Needle gauge: 17 Needle Length (cm): 10 cm Needle Insertion Depth (cm): 7 Catheter Gauge: 19 Catheter Type: multi-orifice Catheter at skin depth (cm): 17 Test Dose Result: negative and lidocaine 1.5% with epinephrine 1 to 200,000
--- NOTE | 2024-06-19 02:06 | P.OBPN_ITS ---
Subjective Date Seen: 06/19/24 Narrative: Silvia is doing well. Comfortable with her epidural. Lee is supporting her at bedside. Objective Exam: Objective: Constitutional: Alert and oriented x3, no distress, coping well Vital signs stable, see nurse documentation Abdomen: gravid, contractions palpate moderate with contractions and soft between Cervix: 7 cm/80%/0 station/vertex NST: 145 bpm/moderate variability with periods of minimal [place] iability/accelerations present/intermittent early and variable decelerations/contractions q3-5 min Vital Signs: Last Vital Signs Temp 97.6 F 06/19/24 01:05 Pulse 80 06/19/24 01:59 Resp 16 06/18/24 18:19 BP 101/62 06/19/24 01:59 Pulse Ox 100 06/19/24 01:32 Plan Plan: Plan: ASSESSMENT:?? 29 at 39 5/7 weeks gestation?? complicated by:??Obesity Labor type: PROM at term, Early labor?? Category 2 FHR pattern.??? Labor complicated by: PROM?? GBS negative ?? PLAN:?? 1. Routine intrapartum cares as ordered. Continue expectant management 2. Monitoring per policy, continuous 3. Continue epidural anesthesia.? 4. Patient encouraged to reposition to promote physiologic labor and .?? 5. Anticipate ?
[2024-06-19] MEDS: PHENYLEPHRINE 100 MCG/ML SYRINGE IVP ×2 (02:11→03:05)
[2024-06-19] MEDS: LACTATED RINGERS 1000 ML 1,000 ML 125 ML IV (03:08)
[2024-06-19] MEDS: ePHEDrine sulfate 5 MG/ML inj 10 MG IVP (03:33)
[2024-06-19] MEDS: OXYTOCIN 30 unit/500 ML in NS 30 UNIT/500 ML BAG IVPB (04:22)
--- NOTE | 2024-06-19 06:43 | W.PM.OBVAGDE ---
OB Procedure Vag Delivery Mother Details Mother Details: The patient is a 28 year-old, 4, now Para 2021, admitted on 06/18/24 at 39.5 Days gestation. Admission Date: 06/18/24 Additional Details Amniotic Membrane Status: SROM Amniotic Membrane Rupture Date: 06/18/24 Amniotic Membrane Rupture Time: 16:15 Amniotic Membrane Fluid Description: Clear Analgesia/Anesthesia Type: Epidural Waterbirth: No Pitcoin: Yes Intrapartal Events: None Delivery augmentation: pitocin Labor Onset: 00:30 Complete: 05:13 Pushin:15 Heart: heart tones during second stage were mostly great but with a variable or 2 with rapid descent and very short 2nd stage. Delivery Details Delivery Date: 06/19/24 Delivery Time: 05:20 Route of delivery: Infant Gender: Male Infant Viability: Alive; Heart Rate Present Position at Delivery: OA Delivery Details: Patient was admitted for PROM at term and progressed with augmentation. SROM noted at 1615 with clear fluid. Patient was complete at 0513 and pushing at 0515. of a viable male at 0520 in right lateral. Vertex delivered OA. Nuchal cord x 1 unable to slip. No shoulder dystocia. Body delivered easily and without incident. Infant passed to mothers abdomen with a vigorous cry. Cord was clamped and cut atapprox 4 minutes. APGARS were 8 at one minute and 9 at five minutes respectively. Mouth was bulb suctioned. Intact placenta with a 3 vessel cord delivered spontaneously at 0526. Fundus firm. 1st degree identified and repaired. QBL 200 cc. Mother and baby stable; mother plans to breastfeed. Infant weight pending.? 1 Minute Interval Total Score: 8 5 Minute Interval Total Score: 9 Additional Details Shoulder Dystocia: No Placenta Delivery Time: 05:26 Placental Delivery Description: Spontaneous Delivery repair: Vicryl Procedure Done: Global Blood Loss: 200 Laceration: Perineal - 1st Degree (at introitus, 1 cm button hole that was not hemostatic, repaired in figure of 8 plus one stitch) Episiotomy Description: None Blood Loss Measurement Type: QBL Bakri Used: No Sponge/Need Count Correct: Yes Cord Vessel Description: 3 Vessels, Nuchal Cord and Delivered through (without complication) Event Summary Status: Mother and were stable after delivery. Disposition: floor
[2024-06-19] MEDS: DOCUSATE SODIUM 100 MG CAPSULE PO (08:23)
--- NOTE | 2024-06-19 11:45 | PM.ANPOST ---
Post Anesthesia Note Post Anesthesia Note Patient seen: Inpatient Respiratory Status: adequate Cardiovascular Status: adequate Mental Status: baseline Pain: adequate Temp: baseline Anesthetic awareness: N/A Complications: none Follow care: none
[2024-06-19] MEDS: IBUPROFEN 600 MG TABLET PO ×2 (12:30→18:49)
[2024-06-19] MEDS: ACETAMINOPHEN 500 MG TABLET 1000 MG PO (16:26)
[2024-06-20 00:33] VITALS: BP 100/62; PULSE 74; RESP 16; TEMP 36.7; O2SAT 95
[2024-06-20 04:16] VITALS: BP 105/69; PULSE 74; RESP 16; TEMP 36.6; O2SAT 97
[2024-06-20 06:19] LABS: Hemoglobin* 12.9 gm/dL (12.0-16.0)
[2024-06-20 08:39] VITALS: BP 116/81; PULSE 83; RESP 18; TEMP 37.1; O2SAT 96
--- NOTE | 2024-06-20 09:44 | PM.OBDSVD1 ---
DS: Providers Provider Date Seen: 06/20/24 Date of admission: 06/18/24 18:32 Primary care physician: Kelsie Calabrese APRN, G[employer]ER CHECKER Admitting Clinician: Hillary Pathak CNM Attending Physician on discharge: Hillary Pathak CNM DS: Diagnosis Discharge Diagnosis (1) care and examination immediately after delivery: Status: Acute (2) Lactating mother: Status: Acute Exam Narrative: Exam Narrative: GENERAL APPEARANCE:? normal affect, alert, no distress MOOD:? appropriate CHEST:? clear to auscultation HEART:? regular rate and rhythm ABDOMEN:? soft, non-tender the uterine fundus is At Umbilicus, Midline and is appropriate for the stage of recovery. PERINEUM:? mild edema of the perineum, there is a Perineal Laceration,?1st degree that is healing well. EXTREMITIES:? normal and no edema Const: Vital Signs, click to edit/add: Vital Signs - 24 hr 06/19/24 12:26 06/19/24 16:14 06/19/24 19:53 Temperature 98.4 F 98.1 F 97.1 F L Pulse Rate [Left P ulse Oximeter] 83 90 81 Respiratory Rate 16 16 16 Blood Pressure [Ri ght Arm] 105/67 101/65 109/70 Pulse Oximetry 96 95 96 Oxygen Delivery Me thod Room Air Room Air Room Air 06/20/24 00:33 06/20/24 04:16 06/20/24 08:39 Temperature 98.1 F 97.8 F 98.7 F Pulse Rate [Left P ulse Oximeter] 74 74 83 Respiratory Rate 16 16 18 Blood Pressure [Ri ght Arm] 100/62 105/69 116/81 Pulse Oximetry 95 97 96 Oxygen Delivery Me thod Room Air Room Air Room Air Documenting provider has reviewed patient's vital signs: yes OB - DS: Summary Hospital Course Hospital Course: January Vega is a 28 y.o. G 4 P 2 who was admitted to L & D for spontaneous onset of labor with PROM. ?She had a NVD that was uncomplicated. The patient feels well. ?The pain is well controlled with current medications. ?She has no new complaints. ?She is pumping and getting small volumes and formula feeding. She is uncertain if she plans to continue pumping but is for now. the patient has done well.? Vitals have been stable.? She has remained afebrile.? Has a good appetite, is tolerating a general diet. ?She is voiding without difficulty.? She is passing gas and has had a bowel movement.? She is ambulating and denies any dizziness.? Has small amount of rubra lochia. Problems: None Discharge home. Baby is being transferred to NICU for further work-up. Follow up in 2 weeks and 6 weeks.? , may see if needed? Hgb 12.9. ?? For pain control of perineum, breast and pelvic pain, take 600 mg Ibuprofen every 6 hours as needed by mouth or 1000 mg acetaminophen (Tylenol) every 6 hours by mouth as needed. You can alternate these so you are taking something every 3 hours as needed. A heating pad can also be used for your abdomen or breasts. You may also take docusate sodium up to twice daily to soften your stools and help to prevent constipation. You may wean off of it when your stools return to normal.? Peripartum Data Infant delivery method: Vaginal Laceration description: Perineal - 1st Degree complications: none [place] Infant Gender: Male Infant Discharge Plan: Baby transferred to NICU Status at Discharge Functional status at discharge: independent ambulation Overall status at discharge: patient is progressing back to baseline Time Spent with Patient Time attestation: Total time spent providing and/or coordinating discharge services: Discharge Plan Discharge Disposition: Home, Self-Care Date of Admission: 06/18/24 18:32 Attending Provider on Discharge: Annemarie Chavez Primary Care Provider: Kelsie Calabrese Condition: Stable Anticipated Discharge Date/Time: 06/20/24 12:00 Discharge Medications: New acetaminophen 500 mg Tablet 1,000 mg PO Q6H PRN (Reason: pain/fever) Qty: 0 0RF docusate sodium 100 mg Capsule 100 mg PO DAILY Qty: 90 0RF ibuprofen 600 mg Tablet 600 mg PO Q6H PRNQty: 60 0RF Continued One-A-Day -1 27 mg iron- 800 mcg-235 mg capsule 1 cap PO DAILY Discontinued aspirin [Adult Low Dose Aspirin] 81 mg tablet,delayed release (DR/EC) 81 mg PO QDAY Discharge Orders: Discharge Order (Routine); Ordered 06/20/24 Ordered By: Annemarie R Scott Patient Education: OB Over the Counter Medication Information, OB Vaginal/Bottle Feeding, OB Vaginal/Breast Feeding Additional Instructions: Discharge instructions were reviewed with the patient including signs and symptoms of infection and home going medications Nothing vaginally for 6 weeks: no tampons or intercourse Off Work or School for 6 weeks 2-week visit: discuss feeding concerns, review control options and screen for anxiety/depression. 6-week visit for an annual exam. consultation services are available to all mothers and babies for the first year after delivery.? To make an appointment, please call [phone]. Activity Level: Activity as Tolerated Discharge Diet: Regular Follow Up Appointments: [facility] [Provider Group] Forms: [employer] Info Instructions
[2024-06-20] MEDS: IBUPROFEN 600 MG TABLET PO (10:46)
[2024-06-20] MEDS: DOCUSATE SODIUM 100 MG CAPSULE PO (10:46)
[2024-06-20 11:49] LABS: Rapid Plasma Reagin (RPR) Non Reactive (Non Reactive)
== END 2024-06-20 11:08 | disposition home or self-care (01) | DRG 560 ==
LOC: OB OUT 18:32 → OB 06-19 03:43
PROVIDERS: Admitting Provider Midwife; PCP Nurse Practitioner Family; Visit Provider Midwife
DX: O42.02 Full-term premature rupture of membranes, onset of labor within 24 hours of rupture (principal); O70.0 First degree perineal laceration during delivery; O99.214 Obesity complicating childbirth; E66.9 Obesity, unspecified; Z3A.39 39 weeks gestation of pregnancy; Z37.0 Single live birth
CPT/HCPCS: 01967; 36415; 84112; 85018; 85025; 86592; G0463; A9270; J2371; J2795; J7120

== ENCOUNTER 2024-07-10 12:49 | Outpatient (CLI) | payer BC, SELFPAY ==
--- NOTE | 2024-07-10 14:15 | W.PM.LAC.MC ---
Consult Note - Mom Date of Visit Date of visit: 07/10/24 Reason for consultation: Breast/Nipple Issue (fullness of LEFT breast, engorgement? plugged ducts? decreased supply) Visit Code: Visit Patient's Information Phone number: [phone] : 4 Para: 2 Allergies No Known Drug Allergies Allergy (Verified 07/10/24 14:34) Mother's Medical History: Medical History (Updated 06/24/24 @ 00:01 by Background Dajovanna) Obesity with body mass index (BMI) of 35.0 to 39.9 without comorbidity ?E66.9 - Obesity, unspecified (ICD-10) Choledocholithiasis ?K80.50 - Calculus of bile duct without cholangitis or cholecystitis without obstruction (ICD-10) Acute cholecystitis ?K81.0 - Acute cholecystitis (ICD-10) History of one miscarriage ?Z87.59 - Personal history of other complications of , childbirth and the puerperium (ICD-10) History of ectopic ?Z87.59 - Personal history of other complications of , childbirth and the puerperium (ICD-10) Delivery Information Delivery type: Vaginal Gestational Age: 39+5 Gestational Weight For Age: AGA Weight: 3.798 kg Discharge Weight: 3.629 kg Percentage weight loss: 4.5 Baby's Information Baby's Age at Visit: 3 weeks Baby's Provider or Clinic: [facility] Past Experience Past Experience: Yes (BF 1st x3mos, then stopped due to difficulties) Current Frequency of Day Feedings: every 3ish hours Frequency of Night Feedings: 3-4 hr stretch Both Breasts: No Pumping Pumping: Yes (exclusively pumping) Quantity Pumped: 4.5-5.5 oz total, more from LEFT than RIGHT Supplementing EBM Supplement: Yes (baby taking 3-3.5 oz 8-9x/day. Mom keeping up with supply currently) Breast/Nipple Condition Breast Information: Breasts are symmetrical in shape with rounded lower quadrants, intramammary distance is less than 1.5 inches. No erythema. Nipples are supple, everted prior to feeding. Breasts are assymmetrical in size with LEFT larger than RIGHT and firm areas from 11 o'clocl to 4 o'clock position; firm to touch, uncomfortable per mom but not painful, no erythema. Breast Shape: Round Engorgement: Yes Interventions for Engorgement: Warm Pack and Cold Pack Maternal Nipple Condition - Left: Common Nipple Maternal Nipple Condition - Right: Common Nipple Sore Nipples: No Assessments/Interventions Assessments/Interventions: Mom has felt unrelieved fullness of LEFT breast for about 2 days now, not getting worse but not getting better. Things she has tried: warm washcloth, warm shower and hand expressing, ice after pumping, gentle massage behind the fullness. None of them have worked very well. She exclusively pumps; has both a Spectra and Mom Cojoe. She has mostly been using her Spectra, but tried her MomCozy for the last few pumpings. She got more milk than with her Spectra, but doesn't know if that made it worse. Mom pumped here with her Spectra as we talked through different settings; she got ~35ml from her RIGHT breast, and 60ml from her LEFT breast. She is using a hands free nursing bra for pumping, but notice the flanges are not staying flush against her breast without holding them in place. Encouraged her to keep them flush against her breast for better maintenance of the suction. Nipples measured for flange size: nipples are 18mm bilaterally; recommend 20-22mm flange. She is using a 21mm on both; she has one 20mm flange with her. She tried the 20mm on her RIGHT breast and reports that is more comfortable; also notice less breast tissue slides in and out of flange so may help with milk expression as well. Mom will order flange inserts for more optimal sizing and comfort Handouts Provided: Discussed etiology of plugged ducts; continuum of inflammation in the breast, untreated can lead to mastitis. Recommend the following: Warmth before nursing/pumping; cool pack after Massage breast in front of plugged duct prior and over/behind during nursing/pumping Lymphatic massage in to help remove fluid from breast and allow better drainage of charbel ducts; 2-3x/day [place] (or soy) lecithin can be helpful; 1200mg 2 capsules 3 times a day for a week, then wean down to 2 times/day for a week, then 1x/day for a week. If plugged ducts return, resume last effective dose Ibuprofen as needed for pain, will also help with swelling Encouraged fluids Discussed this may take 1-2 weeks for milk supply to return to preplugged amounts given significance of breast involvement Traci handout on Managing Plugged ducts given and reviewed Lymphatic Massage in given and reviewed How to Pump More Milk from the [employer] website printed and reviewed for pump settings Encouraged mom to monitor for worsening symptoms: redness on breast, fever, feeling like flu symptoms; to call OB or [facility] if notice this as plugged ducts may have progressed into mastitis Follow-Up Suggested follow up: Appointment as needed Time Spent Time spent with patient (min): 80 (reviewing EMR and face to face with mom) Meds Home Medications and Allergies Home Medications ?Medication ?Instructions ?Recorded ?Confirmed ?Type vit 168-iron 27 mg-folic 1 cap PO DAILY 11/07/23 07/10/24 History acid 800 mcg-omega3 235 mg capsule (One-A-Day -1) Allergies Allergy/AdvReac Type Severity Reaction Status Date / Time No Known Drug Allergies Allergy Verified 07/10/24 14:34
== END 2024-07-10 12:50 | disposition home or self-care (01) ==
PROVIDERS: PCP Nurse Practitioner Family; Visit Provider Obstetrics & Gynecology
DX: Z39.1 Encounter for care and examination of lactating mother (principal)
CPT/HCPCS: G0463